=== PATIENT | female | born 1960 | race Caucasian/White ===

== ENCOUNTER 2023-05-17 23:17 | Inpatient (IN) | payer MEDICARE, OTHER, SELFPAY ==
--- NOTE | ~2023-05-17 | US_ITS ---
EXAMINATION: US VENOUS ULTRASOUND WITH DOPPLER LOWER EXTREMITY, BILATERAL CLINICAL INFORMATION: Swelling, question DVT COMPARISON: None available. TECHNIQUE: Ultrasound of the deep veins is performed from the hip to the calf with compression sonography and color and pulse Doppler assessment. Spectral analysis with color-flow imaging is performed. FINDINGS: RIGHT: There is normal venous compression and respiratory variation and augmented flow. The visualized common femoral vein, superficial femoral vein, profunda femoral vein, popliteal vein, and the trifurcation region shows no evidence of deep venous thrombosis. There is no significant popliteal fossa cyst. LEFT: There is normal venous compression and respiratory variation and augmented flow. The visualized common femoral vein, superficial femoral vein, profunda femoral vein, popliteal vein, and the trifurcation region shows no evidence of deep venous thrombosis. There is no significant popliteal fossa cyst. If the patient's symptoms persist, followup ultrasound in 5 days 7 days might be of value to exclude proximal propagation from a non-visualized calf vein. US/US venous duplex LE BI IMPRESSION: No DVT demonstrated in the bilateral lower extremities.
--- NOTE | ~2023-05-17 | CT_ITS ---
EXAMINATION: CT CHEST, ABDOMEN AND PELVIS WITH CONTRAST CLINICAL INFORMATION: Fever of unknown origin COMPARISON: None TECHNIQUE: Multidetector volumetric imaging was performed through the chest, abdomen and pelvis following the administration of oral and 85 mL of Omnipaque 350 intravenous contrast. Delayed imaging through the abdomen/pelvis was also performed. Sagittal and coronal reformatted images were obtained on the technologist's workstation. Axial MIP volume rendering provided. This CT examination was performed using dose optimization techniques as appropriate, variously including the following: *Automated exposure control *Adjustment of mA and/or kV according to patient size (this includes techniques or standardized protocols for targeted exams where dose is matched to indication/reason for exam; i.e. extremities or head) *Use of iterative reconstruction technique DLP: 2248 mGy-cm FINDINGS: CHEST: Lungs: Limited detailed evaluation due to respiratory motion artifact. Mild dependent symmetric opacities bilaterally favor atelectasis. No additional consolidation is seen. Mediastinum: The visualized thyroid gland is unremarkable. There are subcentimeter mediastinal lymph nodes within the range of normal variation. Borderline cardiomegaly without pericardial effusion. Aorta appears unremarkable. Pleura: No pneumothorax or pleural effusion. Chest Wall/Axilla: Unremarkable. ABDOMEN/PELVIS: Suboptimal assessment in some regions due to motion artifact. Liver, Gallbladder, Biliary Tree: The liver is normal in size, shape, and attenuation. No focal hepatic lesion or biliary ductal dilatation is present. The gallbladder is unremarkable with no evidence of radiopaque gallstones, gallbladder wall thickening, or pericholecystic inflammatory changes. Pancreas: Unremarkable. Spleen: Unremarkable. Adrenal Glands: Unremarkable. Kidneys and Ureters: Bilateral nephrograms are symmetric. There are prominent fluid density structures in the bilateral renal sinuses, most consistent with renal sinus cysts as these do not enhance on delayed imaging, and the renal pelvises are nondilated; no follow-up recommended. No ureteral calculus is seen. Bladder: Nearly empty and not well evaluated. Gastrointestinal Tract: There is sigmoid colon diverticulosis without diverticulitis. The small and large bowel are otherwise unremarkable without evidence of obstruction or pericolonic inflammatory change. The appendix is unremarkable. No free fluid or free air is seen. Abdominal Wall: No hernia is demonstrated. Lymphovascular Structures: Lymph nodes: Normal. Vascular: There is a partially calcified splenic artery aneurysm which may measure up to up to 2.7 cm, though this is difficult to accurately measure due to motion artifact. Pelvic Viscera: Unremarkable. OSSEOUS STRUCTURES: Unremarkable. CT/CT abdomen pelvis w IV con IMPRESSION: 1. No acute findings identified in the chest, abdomen, or pelvis. Of note, there is suboptimal assessment in some regions due to motion artifact. 2. Prominent fluid density structures in the bilateral renal sinuses, most consistent with renal sinus cysts. 3. Partially calcified splenic artery aneurysm which may measure up to 2.7 cm, though this is difficult to accurately measure due to motion artifact.
--- NOTE | ~2023-05-17 | CT_ITS ---
EXAMINATION: CT HEAD WITHOUT CONTRAST CLINICAL INFORMATION: Change in mental status COMPARISON: None available. TECHNIQUE: Contiguous axial imaging was performed from the skull base to vertex without intravenous administration of contrast. This CT examination was performed using dose optimization techniques as appropriate, variously including the following: *Automated exposure control *Adjustment of mA and/or kV according to patient size (this includes techniques or standardized protocols for targeted exams where dose is matched to indication/reason for exam; i.e. extremities or head) *Use of iterative reconstruction technique DLP: 576 mGy-cm FINDINGS: Limited evaluation some regions due to streak artifact from left cochlear implant. There is no evidence of acute intracranial hemorrhage or territorial infarction. No abnormal mass-effect or midline shift is seen. Burns to white matter differentiation is well preserved. No extra-axial fluid collections are identified. The ventricles are normal in size. There is mild periventricular white matter hypoattenuation consistent with chronic small vessel ischemic disease. Mild volume loss is noted. No acute fracture is seen. There is a mottled lucent appearance of the calvarium. Partially opacified right mastoid air cells. The visualized portions of the paranasal sinuses are well-aerated. CT/CT head/brain wo IV con IMPRESSION: 1. No acute intracranial pathology. Chronic small vessel ischemic disease and volume loss. 2. Mottled lucent appearance of the calvarium, of uncertain chronicity without prior studies for comparison. Considerations would include sequelae of multiple myeloma or metastases in the proper clinical setting.
--- NOTE | ~2023-05-17 | XR_ITS ---
EXAMINATION: XR CHEST CLINICAL INFORMATION: Weakness COMPARISON: None available. TECHNIQUE: Frontal view of the chest was obtained. FINDINGS: Mild bibasilar atelectasis, left side greater than right. No consolidation, pneumothorax or pleural effusion. Pleural parenchymal scarring is present at the lung apices. Cardiac and mediastinal contours are normal. Pulmonary vasculature is . No acute osseous findings. XR/XR chest 1V IMPRESSION: Mild bibasilar atelectasis. No acute pulmonary findings.
[2023-05-17 23:26] VITALS: BP 126/43; PULSE 79; RESP 17; TEMP 39.1; O2SAT 94
[2023-05-17 23:39] VITALS: BP 128/70; PULSE 85; O2SAT 96; BMI 29.8
--- NOTE | 2023-05-17 23:43 | ECG_ITS ---
Test Reason : AMS Blood Pressure : / mmHG Vent. Rate : 075 BPM Atrial Rate : 075 BPM P-R Int : 120 ms QRS Dur : 074 ms QT Int : 362 ms P-R-T Axes : 003 045 024 degrees QTc Int : 404 ms Normal sinus rhythm Nonspecific T wave abnormality Abnormal ECG No previous ECGs available Referred By: Martha Bishop Electronically Signed By:QUEENIE JOHNSON MD
[2023-05-18] VITALS (9 sets, daily range): BP systolic 94–129; BP diastolic 40–60; PULSE 60–103; RESP 16–18; TEMP 36–38.3; O2SAT 93–97; BMI 30.8
[2023-05-18 00:05] LABS: MANUAL DIFF FLAG NO
[2023-05-18 00:08] LABS: Basophils Percent Auto 0.4 % (0-2); Eosinophils Percent Auto 0.1 % (0-4); Hematocrit 41.8 % (37.0-47.0); Hemoglobin 14.7 g/dl (12.0-16.0); Imm Gran Abs Auto 0.01 X10*3/uL (0.00-0.03); Imm Gran Pct Auto 0.1 % (0.0-0.4); Lymphocytes Absolute Auto 0.9 X10*3/uL (1.2-4.9); Lymphocytes Percent Auto 11.6 % (20-40); Mean Corpuscular HGB Conc 35.2 g/dl (31.0-35.0); Mean Corpuscular Hemoglobin 32.4 pg (27.0-33.0); Mean Corpuscular Volume 92.1 fL (80.0-98.0); Mean Platelet Volume 10.1 fL (9.4-12.3); Monocytes Absolute Auto 0.8 X10*3/uL (0.1-1.2); Monocytes Percent Auto 10.2 % (2-11); Neutrophils Absolute Auto 5.8 x10*3/uL (2.0-8.3); Neutrophils Percent Auto 77.6 % (45-73); Platelet Count 174 X10*3/uL (160-400); Red Blood Count 4.54 X10*6/uL (4.20-5.50); Red Cell Distribution Width 13.1 % (11.0-16.0); White Blood Count 7.4 X10*3/uL (4.8-10.8)
[2023-05-18] MEDS: Acetaminophen 325 MG TABLET 650 MG PO (00:08)
[2023-05-18] MEDS: cefTRIAXone sodium 1 GM in 0.9 % Sodium Chloride 50 ML IV (00:08)
[2023-05-18] MEDS: 0.9 % Sodium Chloride 1,000 ML 999 ML IVCONT (00:08)
--- NOTE | 2023-05-18 00:09 | ED.WEAKNESS ---
HPI - Weakness General Chief complaint: Altered Mental Status Stated complaint: fever Time Seen by Provider: 05/17/23 23:26 Source: patient and family Mode of arrival: EMS Limitations: other (confusion) History of Present Illness HPI Narrative: 63 yo female with PMH of TBI, hearing loss, cognitive impairment, melanoma in remission but did have brain surgery because of it remotely she has memory issues at baseline but last two days has seemed foggy and weak with increased urination and very weak starting today. was worried she had a UTI or something. He basically had to help her get to and from the bathroom. She is normally alert and oriented but confused today and now only oriented to person. Patient is having a hard time describing what is happening to her states she has been sick for 2 weeks and her and his girlfriend help her (the girlfriend is in fact the patient's sister who is RN who has been trying to help) was recently told she has two scaly non infected patches on R upper thigh that she could have lupus but derm is not sure MD Complaint: generalized weakness Onset (ago): day(s) (2) Duration: progressively worsening Location: generalized Migration: none Severity: moderate Relieving factors: rest Exacerbating factors: movement and exertion Context: recent illness Associated symptoms: loss of appetite Related Data Allergies Allergy/AdvReac Type Severity Reaction Status Date / Time No Known Allergies Allergy Verified 05/17/23 23:42 Review of Systems Review of Systems: ROS unable to be obtained due to altered mental status PMFSH Past Medical History Source: obtained from family Medical History Hyperlipidemia Cognitive impairment Melanoma Hearing loss TBI (traumatic brain injury) Social History Social History (Updated 05/18/23 @ 00:10 by Martha Bishop DO) Alcohol intake: never Patient Tobacco Use Status: Never used Tobacco Smoked in Last 30 Days: No Use of substances other than those prescribed or required for medical reasons: No Advance Directives: No Advance Directives Information Provided: Yes Physical Exam Vital Signs: Vital Signs: Last Vital Signs Temp 97.9 F 05/18/23 02:43 Pulse 67 05/18/23 02:43 Resp 18 05/18/23 02:43 BP 116/50 L 05/18/23 02:43 Pulse Ox 97 05/18/23 02:43 O2 Del Method Room Air 05/18/23 02:43 BMI result Body Mass Index 29.8 Appearance: Alert. Oriented X1. Mild acute distress. Eyes: Pupils equal, round and reactive to light. ENT: Pharynx mildly dry MM, atraumatic Neck: Normal inspection. Neck supple. CVS: Normal heart rate and rhythm. Pulses normal. Respiratory: No respiratory distress. Breath sounds normal. Abdomen: Soft and nontender. Skin: Skin warm and dry. pale skin color. Normal skin turgor. Extremities: No lower extremity edema. No calf ttp Neuro: Oriented X 1. No motor deficit. No sensory deficit. Course Course Course Narrative: patient is not consentable after discussing possible LP with she will need significant sedation to get this done - at this time not equipped to do this at 345am in morning single coverage, will cover with abx and acyclovir and admit for IR spinal tap is aware Medications Administered Discontinued Medications Generic Name Dose Route Start Last Admin Trade Name Freq PRN Reason Stop Dose Admin Acetaminophen 650 mg 05/17/23 23:43 05/18/23 00:08 Acetaminophen 325 Mg Tablet PO 05/17/23 23:44 650 mg ONCE ONE Administration Sodium Chloride 1,000 mls @ 999 mls/hr 05/17/23 23:45 05/18/23 01:45 Ns IVCONT 05/18/23 00:45 Infused .Q1H1M PEDRITO Infusion Ceftriaxone Sodium 1 gm/ 50 mls @ 100 mls/hr 05/17/23 23:43 05/18/23 00:59 Sodium Chloride IV 05/18/23 00:12 Infused ONCE ONE Infusion Iohexol 85 ml 05/18/23 02:42 05/18/23 02:42 Iohexol 350 Mg/Ml 100 Ml Infus..Btl IV 05/18/23 02:43 85 ml ONCE ONE Administration Medical Decision Making Medical Decision Making MDM Narrative: 63 yo female with PMH of TBI, hearing loss, cognitive impairment, melanoma in remission but did have brain surgery because of it remotely here with c/o weakness, increased confusion and urinary symptoms found to have temp of 102 on ED arrival - at this time labs, cultures, lactic acid, CXR and UA ordered along with IVF, tylenol and empiric ceftriaxone. She has not fallen has no focal deficits or signs of head trauma to suggest ICH. Differential Diagnosis Differential Diagnoses: The differential diagnosis associated with the presentation includes viral syndrome, UTI, pneumonia Admission/Observation Consideration of admission/observation: Escalation of care including admission/observation considered will admit Consult Healthcare Provider Management of the patient was discussed with: Hospitalist (will admit) Lab Data [facility] Lab Attestation statement: I reviewed the patient's lab results. 05/17/23 23:59 05/17/23 23:59 Labs: Lab Results 05/17/23 05/18/23 05/18/23 Range/Units 23:59 00:06 00:10 WBC 7.4 (4.8-10.8) X10*3/uL RBC 4.54 (4.20-5.50) X10*6/uL Hgb 14.7 (12.0-16.0) g/dl Hct 41.8 (37.0-47.0) % MCV 92.1 (80.0-98.0) fL MCH 32.4 (27.0-33.0) pg MCHC 35.2 H (31.0-35.0) g/dl RDW 13.1 (11.0-16.0) % Plt Count 174 (160-400) X10*3/uL MPV 10.1 (9.4-12.3) fL Immature Gran % (Auto) 0.1 (0.0-0.4) % Neut % (Auto) 77.6 H (45-73) % Lymph % (Auto) 11.6 L (20-40) % [place] % (Auto) 10.2 (2-11) % Eos % (Auto) 0.1 (0-4) % Baso % (Auto) 0.4 (0-2) % Lymph # (Auto) 0.9 L (1.2-4.9) X10*3/uL [place] # (Auto) 0.8 (0.1-1.2) X10*3/uL Eos # (Auto) 0.0 (0.0-0.4) X10*3/uL Baso # (Auto) 0.0 (0.0-0.2) X10*3/uL Abs Immat Gran (auto) 0.01 (0.00-0.03) X10*3/uL Absolute Neuts (auto) 5.8 (2.0-8.3) x10*3/uL Absolute Nucleated RBC 0.000 (0.0-0.012) X10*3/uL Nucleated RBC % (auto) 0.0 (0.0-0.2) /100WBC VBG pH 7.41 (7.32-7.43) VBG pCO2 40 mmHg VBG pO2 47 mmHg VBG HCO3 26 (22-26) mmol/L VBG O2 Saturation 75.0 % VBG Base Excess 1.5 mmol/L Sodium 140 (135-145) mmol/L Potassium 4.0 (3.3-5.1) mmol/L Chloride 110 H (96-108) mmol/L Carbon Dioxide 23 (22-29) mmol/L Anion Gap 11 L (12-20) BUN 16 (9-16) mg/dL Creatinine 1.14 (0.5-1.4) mg/dL Estim Creat Clear Calc 57.4 Estimated GFR 48 Random Glucose 113 (60-115) mg/dL Lactic Acid 1.3 (0.5-2.0) mmol/L Calcium 9.6 (8.4-10.2) mg/dL Magnesium 2.1 (1.6-2.6) mg/dL Total Bilirubin 0.6 (0.0-1.0) mg/dL Direct Bilirubin 0.2 (0.0-0.5) mg/dL AST 31 (5-31) U/L ALT 34 H (0-31) U/L Alkaline Phosphatase 59 (39-117) U/L Troponin I High Sens < 2.7 (<3.5-17.0) ng/L Total Protein 7.5 (6.5-8.0) g/dL Albumin 4.3 (3.5-5.0) g/dL Lipase 30 (8-78) U/L Procalcitonin 0.08 ng/mL TSH 0.86 (0.32-4.0) uIU/mL Urine Color Urine Appearance Urine pH (5.0-9.0) Ur Specific [place] (1.005-1.025) Urine Protein (Neg-Trace) mg/dL Urine Glucose (UA) (Negative) mg/dL Urine Ketones (Negative) mg/dL Urine Blood (Negative) Urine Nitrite (Negative) Ur Leukocyte Esterase (Negative) COVID-19 (JUAN) Negative (Negative) COVID-19 Clin Com See Note Influenza Type A (MISA) Negative (Negative) Influenza Type B (MISA) Negative (Negative) Influenza A & B Note See Note 05/18/23 Range/Units 01:39 WBC (4.8-10.8) X10*3/uL RBC (4.20-5.50) X10*6/uL Hgb (12.0-16.0) g/dl Hct (37.0-47.0) % MCV (80.0-98.0) fL MCH (27.0-33.0) pg MCHC (31.0-35.0) g/dl RDW (11.0-16.0) % Plt Count (160-400) X10*3/uL MPV (9.4-12.3) fL Immature Gran % (Auto) (0.0-0.4) % Neut % (Auto) (45-73) % Lymph % (Auto) (20-40) % [place] % (Auto) (2-11) % Eos % (Auto) (0-4) % Baso % (Auto) (0-2) % Lymph # (Auto) (1.2-4.9) X10*3/uL [place] # (Auto) (0.1-1.2) X10*3/uL Eos # (Auto) (0.0-0.4) X10*3/uL Baso # (Auto) (0.0-0.2) X10*3/uL Abs Immat Gran (auto) (0.00-0.03) X10*3/uL Absolute Neuts (auto) (2.0-8.3) x10*3/uL Absolute Nucleated RBC (0.0-0.012) X10*3/uL Nucleated RBC % (auto) (0.0-0.2) /100WBC VBG pH (7.32-7.43) VBG pCO2 mmHg VBG pO2 mmHg VBG HCO3 (22-26) mmol/L VBG O2 Saturation % VBG Base Excess mmol/L Sodium (135-145) mmol/L Potassium (3.3-5.1) mmol/L Chloride (96-108) mmol/L Carbon Dioxide (22-29) mmol/L Anion Gap (12-20) BUN (9-16) mg/dL Creatinine (0.5-1.4) mg/dL Estim Creat Clear Calc Estimated GFR Random Glucose (60-115) mg/dL Lactic Acid (0.5-2.0) mmol/L Calcium (8.4-10.2) mg/dL Magnesium (1.6-2.6) mg/dL Total Bilirubin (0.0-1.0) mg/dL Direct Bilirubin (0.0-0.5) mg/dL AST (5-31) U/L ALT (0-31) U/L Alkaline Phosphatase (39-117) U/L Troponin I High Sens (<3.5-17.0) ng/L Total Protein (6.5-8.0) g/dL Albumin (3.5-5.0) g/dL Lipase (8-78) U/L Procalcitonin ng/mL TSH (0.32-4.0) uIU/mL Urine Color Yellow Urine Appearance Clear Urine pH 5.5 (5.0-9.0) Ur Specific [place] >= 1.030 H (1.005-1.025) Urine Protein Negative (Neg-Trace) mg/dL Urine Glucose (UA) Negative (Negative) mg/dL Urine Ketones Trace (Negative) mg/dL Urine Blood Negative (Negative) Urine Nitrite Negative (Negative) Ur Leukocyte Esterase Negative (Negative) COVID-19 (JUAN) (Negative) COVID-19 Clin Com Influenza Type A (MISA) (Negative) Influenza Type B (MISA) (Negative) Influenza A & B Note Independent Interpretation I performed an independent interpretation of an: EKG and Plain X-Ray (no pneumonia) Interpretation: Rate: 75 Rhythm: NSR Philipp: normal Normal P waves. Normal VANE. Normal QRS complex. ST T wave : no KRISTAL, nonspecific lateral leads qTC: 404 prior studies: no acute ischemia The study has been interpreted contemporaneously by me. . Radiology Impression Discussion of test interpretation with radiology: I have reviewed the radiologist's reading. Independent Historian Clinical information obtained from an independent historian. History obtained from or confirmed by: Spouse Discharge Plan Discharge Clinical Impression: Acute febrile illness Altered mental status Qualifiers: Altered mental status type: delirium Qualified Code(s): R41.0 - Disorientation, unspecified Patient Disposition: Admitted As Inpatient
[2023-05-18 00:17] LABS: VBG Base Excess 1.5 mmol/L; VBG HCO3 26 mmol/L (22-26); VBG pCO2 40 mmHg; VBG pH 7.41 (7.32-7.43); VBG pO2 47 mmHg
[2023-05-18 00:17] LABS: Venous Blood Gas Refer to POC result
[2023-05-18 00:19] LABS: Lactic Acid 1.3 mmol/L (0.5-2.0)
[2023-05-18 00:28] LABS: Troponin-I High Sensitivity < 2.7 ng/L (<3.5-17.0)
[2023-05-18 00:36] LABS: Alanine Aminotransferase 34 U/L (0-31); Albumin Level 4.3 g/dL (3.5-5.0); Alkaline Phosphatase 59 U/L (39-117); Anion Gap 11 (12-20); Aspartate Amino Transferase 31 U/L (5-31); Bilirubin Direct 0.2 mg/dL (0.0-0.5); Bilirubin Total 0.6 mg/dL (0.0-1.0); Blood Urea Nitrogen 16 mg/dL (9-16); Calcium 9.6 mg/dL (8.4-10.2); Carbon Dioxide 23 mmol/L (22-29); Chloride 110 mmol/L (96-108); Creatinine Clr Calc Pharmacy 57.4; Estimated Glomerular Filt Rate 48; Glucose Random 113 mg/dL (60-115); Lipase 30 U/L (8-78); Magnesium 2.1 mg/dL (1.6-2.6); Sodium 140 mmol/L (135-145); Total Protein 7.5 g/dL (6.5-8.0)
[2023-05-18 00:39] LABS: COVID-19 Test Negative (Negative); IDNOW Serial# 08D9AD1C; IDNOW Serial# 9DB6401D; Influenza A Negative (Negative); Influenza B2 Negative (Negative)
[2023-05-18 00:42] LABS: TSH reflex Free T4 0.86 uIU/mL (0.32-4.0)
[2023-05-18 00:45] LABS: Procalcitonin 0.08 ng/mL
--- OUTSIDE RECORDS SUMMARY | 2023-05-18 00:58 | XMS_ITS | Continuity of Care Document ---
Author Name Unknown Organization [facility] Address [address] [place] [address]- Care Team Providers Care Instrument Specialist Name Role Phone Sandra Hernandez NP Primary Care Physician [id number] Date(s): 03/30/22 - 07/28/22 [facility] [address] [place] [id number]- Attending Physician: Sandra Hernandez NP Allergies, Adverse Reactions, Alerts No Known Medication Allergies Immunizations Given and Recorded Vaccine Date Status Refusal Reason SARS-CoV-2 (COVID-19) mRNA BNT-162b2 vac 03/19/21 Recorded SARS-CoV-2 (COVID-19) mRNA BNT-162b2 vac 08/09/20 Recorded SARS-CoV-2 (COVID-19) mRNA BNT-162b2 vac 07/19/20 Recorded influenza virus vaccine, inactivated 01/05/21 Jarod rded influenza virus vaccine, inactivated 12/25/19 Jarod rded influenza virus vaccine, inactivated 01/04/19 Jarod rded influenza virus vaccine, inactivated 01/30/18 Jarod rded Flu Vaccine 01/29/15 Recorded tetanus/diphtheria/pertussis, acel(Tdap) 07/08/11 Recorded Medications Amlactin 12% lotion Topically, 2 times a day, 0 Refills, Maintenance, 12/28/21 10:08:00 EDT, Partial fill upon patient request if the prescription is for a schedule II opioid drug. Start Date: 12/28/21 Status: Ordered Centrum Adults By Mouth, Daily, 0 Refills, Maintenance, 12/28/21 10:07:00 EDT, Partial fill upon patient request if the prescription is for a schedule II opioid drug. Start Date: 12/28/21 Status: Ordered Prevagen = 50 mcg, By Mouth, Daily, 0 Refills, Maintenance, 12/28/21 10:07:00 EDT, Partial fill upon patientrequest if the prescription is for a schedule II opioid drug. Start Date: 12/28/21 Status: Ordered rosuvastatin 10 mg oral tablet 1 tablet, By Mouth, Daily, # 90 tablet, 1 Refills, Maintenance, 06/14/22 18:24:00 EST, [id number], 174, cm, 12/28/21 10:02:00 EDT, Height Start Date: 06/14/22 Status: Ordered Vitamin D3 1000 intl units oral capsule 1 capsule = 25 mcg, By Mouth, Daily, 0 Refills, Maintenance, 12/28/21 10:07:00 EDT, Partial fill upon patient request if the prescription is for a schedule II opioid drug. Start Date: 12/28/21 Status: Ordered Problem List Condition Confirmation Course Effective Dates Status H ealth Status Informant Macular degeneration of right eye Confirmed Active History of malignant melanoma Confirmed Active History of traumatic brain injury Confirmed Active Hyperlipidemia Confirmed Active Social History Social History Type Response Smoking Status Never (less than 100 in lifetime) entered on: 12/28/21 Sex Patient Care team information Care Team Personnel Name: Sandra Hernandez NP Position: S PCO Associate Professional Member Role: PCP Address: Address: [address] [place] [address] [place] [address]- [place] Care Team Related Persons Name: STEVIE GEORGE Address: home [address] [place] [address] Name: REAGAN BATISTA Address: [place] [address]
--- OUTSIDE RECORDS SUMMARY | 2023-05-18 00:59 | XMS_ITS | Continuity of Care Document ---
Author Name Unknown Organization [facility] Address [address] [place] [id number]- Care Team Providers Care Hand Pleater Name Role Phone Sandra Hernandez NP Primary Care Physician Encounter [facility] Date(s): 12/15/20 - [facility] [address] [place] [address]- Encounter Diagnosis Hyperlipidemia(Discharge Diagnosis) - 12/15/20 Macular degeneration of right eye(Discharge Diagnosis) - 12/15/20 History of traumatic brain injury(Discharge Diagnosis) - 12/15/20 Attending Physician: Sandra Hernandez NP Allergies, Adverse Reactions, Alerts No Known Medication Allergies Immunizations Given and Recorded Vaccine Date Status Refusal Reason SARS-CoV-2 (COVID-19) mRNA BNT-162b2 vac 08/09/20 Recorded SARS-CoV-2 (COVID-19) mRNA BNT-162b2 vac 07/19/20 Recorded influenza virus vaccine, inactivated 12/25/19 Jarod rded influenza virus vaccine, inactivated 01/04/19 Jarod rded influenza virus vaccine, inactivated 01/30/18 Jarod rded Flu Vaccine 01/29/15 Recorded tetanus/diphtheria/pertussis, acel(Tdap) 07/08/11 Recorded Medications rosuvastatin 10 mg oral tablet 1 tablet = 10 mg, By Mouth, Daily, # 30 tablet, 0 Refills, Maintenance, 12/15/20 10:14:00 EDT, Tablet, Partial fill upon patient request if the prescription is for a schedule II opioid drug. Start Date: 12/15/20 Status: Ordered Problem List Condition Effective Dates Status Health Status Inform ant Macular degeneration of righ t eye(Confirmed) Active History of traumatic brain injury(Confirmed) Active Hyperlipidemia(Confirmed) Active Diagnosis Diagnosis Type Effective Dates Health Status Clinical Service Informant Hyperlipidemia Discharge Diagnosis 12/15/20 Macular degeneration of right eye Discharge Diagnosis 12/15/20 History of traumatic brain injury Discharge Diagnosis 12/15/20 Vital Signs Most recent to oldest [Reference Range]: 1 Height 174 cm (12/15/20 10:05 AM) Weight 83.1 kg (12/15/20 10:05 AM) Oxygen Saturation [94-100 %] 98 % (12/15/20 10:05 AM) Pulse Rate [55-90 bpm] 74 bpm (12/15/20 10:05 AM) Body Mass Index [18.5-24.99] 27.45 *H* (12/15/20 10:05 AM) Blood Pressure [90-138/55-84 mm Hg] 124/ 84mm Hg (12/15/20 10:05 AM) Respiratory Rate [16-30 br/min] 16 br/mi n (12/15/20 10:05 AM) Temperature [96.8-100.4 DegF] 98.6 DegF (12/15/20 10:05 AM) Mode of Delivery (Oxygen) Room air (12/15/20 10:05 AM) Blood pressure sites Arm, right (12/15/20 10:05 AM) Temperature Route Temporal (12/15/20 10:05 AM)
--- OUTSIDE RECORDS SUMMARY | 2023-05-18 00:59 | XMS_ITS | Continuity of Care Document ---
Author Name Unknown Organization [facility] Address [address] [place] [address]- Care Team Providers Care Roller Skate Repairer Name Role Phone David CLARKE, Sandra Wise Primary Care Physician Encounter [facility] Date(s): 12/10/20 - [facility]09/[facility] [address] [place] [address]- [place] Allergies, Adverse Reactions, Alerts No Known Medication Allergies Immunizations Given and Recorded Vaccine Date Status Refusal Reason influenza virus vaccine, inactivated 01/05/21 Jarod rded influenza virus vaccine, inactivated 12/25/19 Jarod rded influenza virus vaccine, inactivated 01/04/19 Jarod rded influenza virus vaccine, inactivated 01/30/18 Jarod rded SARS-CoV-2 (COVID-19) mRNA BNT-162b2 vac 08/09/20 Recorded SARS-CoV-2 (COVID-19) mRNA BNT-162b2 vac 07/19/20 Recorded Flu Vaccine 01/29/15 Recorded tetanus/diphtheria/pertussis, acel(Tdap) 07/08/11 [...]
--- OUTSIDE RECORDS SUMMARY | 2023-05-18 00:59 | XMS_ITS | Continuity of Care Document ---
Author Name Unknown Organization [facility] Address [address] [phone]- Care Team Providers Care Pulmonary Specialist Name Role Phone Sandra Hernandez NP Primary Care Physician [phone] Encounter [facility] Date(s): 08/06/22 - 08/13/22 [facility] Adult Medicine [address] [place] [address]- Encounter Diagnosis COVID-19 virus infection(Discharge Diagnosis) - 08/06/22 Hyperlipidemia(Discharge Diagnosis) - 08/06/22 Hospital discharge follow-up(Discharge Diagnosis) - 08/06/22 Attending Physician: Sandra Hernandez NP Allergies, Adverse Reactions, Alerts No Known Medication Allergies Immunizations Given and Recorded Vaccine Date Status Refusal Reason influenza virus vaccine, inactivated 12/30/21 Jarod rded influenza virus vaccine, inactivated 01/05/21 Jarod rded influenza virus vaccine, inactivated 12/25/19 Jarod rded influenza virus vaccine, inactivated 01/04/19 Jarod rded influenza virus vaccine, inactivated 01/30/18 Jarod rded [id number] 12y+ bivalent booster vax 12/30/21 Recorded SARS-CoV-2 mRNA (qkvhegh-ppvu-griko) vax 08/07/21 Recorded SARS-CoV-2 (COVID-19) mRNA BNT-162b2 vac 03/19/21 Recorded [...] tablet, 1 Refills, Maintenance, 06/14/22 18:24:00 EST, [facility], 174, cm, 12/28/21 10:02:00 EDT, Height Start [...] brain injury Confirmed Active Hyperlipidemia Confirmed Active Diagnosis Diagnosis Type Effective Dates Health Status Clinical Service Informant COVID-19 virus infection Discharge Diagnosis 08/06/22 Hyperlipidemia Discharge Diagnosis 08/06/22 Hospital discharge follow-up Discharge Diagnosis 08/06/22 Vital Signs Most recent to oldest [Reference Range]: 1 Height 174 cm (08/06/22 12:35 PM) Weight 87.1 kg (08/06/22 12:35 PM) Oxygen Saturation [94-100 %] 97 % (08/06/22 12:35 PM) Pulse Rate [55-90 bpm] 78 bpm (08/06/22 12:35 PM) Body Mass Index [18.5-24.99 kg/m2] 28.77 kg/m2 *H* (08/06/22 12:35 PM) Blood Pressure [90-138/55-84 mm Hg] 118/ 74mm Hg (4/21/23 12:35 PM) Temperature [96.8-100.4 DegF] 97.6 DegF (08/06/22 12:35 PM) Mode of Delivery (Oxygen) Room air (08/06/22 12:35 PM) Blood pressure sites Arm, left (08/06/22 12:35 PM) Temperature Route Temporal (08/06/22 12:35 PM) Weight Obtained Via Standing scale (08/06/22 12:35 PM) Social History Social History Type Response Smoking Status Never (less than 100 in lifetime) entered on: 12/28/21 Sex Note * Judy Gonzáles: PERFORM, SIGN, VERIFY Event Display: Patient Education/Instruction Authored Date: [id number] [facility] *BMP Quab Adlt Med Bltn Clinical Summary Name KIMBERLY GEORGE Age 62 Years 1960 PCP David CLARKE, Sandra Wise PCP Visit Date 08/06/2022 12:30:00 Additional Instructions: Scheduled Appointments?? Future Appointments ?No Future Appointments Scheduled Follow-Up Instructions ?? Diagnosis Encounter for follow-up examination after completed treatment for conditions other than malignant neoplasm; Hyperlipidemia, unspecified; COVID-19 Medications: Please continue your medications until treatment is completed or stopped by your provider. Discuss any questions related to medications with your provider. Medications to Continue with No Changes These medications were not printed or sent to your pharmacy Ammonium Lactate 12% (Amlactin 12% lotion) Topically twice a day. Next Dose: Cholecalciferol (Prevagen) 50 Microgram Oral Daily. Next Dose: Cholecalciferol (Vitamin D3 1000 intl units oral capsule) 1 capsule Oral Daily. Next Dose: Multivitamin With Minerals (Centrum Adults) Oral Daily. Next Dose: Rosuvastatin (rosuvastatin 10 mg oral tablet) 1 tab(s) Oral Daily. Refills: 1. Next Dose: Allergy Info:?? No Known Medication Allergies Medications Given This Visit Future Orders ?Lipid Panel? Order Date:08/06/22?- Complete on or after?08/06/22 ?Comprehensive Metabolic Panel? Order Date:08/06/22?- Complete on or after?08/06/22 Vital Signs Height 174 cm Weight 87.1 kg BMI 28.77 kg/m2 Blood Pressure 118 mm Hg/74 mm Hg Temperature 97.6 DegF Pulse Rate 78 bpm Respiratory Rate 02 Sat Mode of Delivery 97 %/Room air You can now view a summary of your hospital visit from the comfort of your home through a free online portal called [employer]. [employer] is a website that allows you to securely view your medical information including discharge summary, medications and follow-up visits. ??You can alsosend a secure electronic message to your doctor???s office to request appointments, renew medications or just ask a question. You can enroll at [email or web address] or register during your next office visit. Disclaimer:?? The information provided is of a general nature and is intended to be used in conjunction with the recommendations and advice of your health care practitioner. ??Every effort has been made to ensure that the information provided is accurate and complete at the time it is provided to you however, as your needs change, or, as new ??information becomes available, different or additional instructions may be required. If you have questions, please consult with your primary care provider or pharmacist, as appropriate. ??This information is not intended to serve as substitution for assessment and evaluation by a qualified health care provider. If you do not have a primary care provider, you may find a [facility] provider by calling [facility] [employer] at [phone]. For information about the plan of care including goals and instructions for your diagnosis, please see the patient education orders section of this document. Patient Education Materials?? The content of this educational material or handout may have been modified, supplemented, or adapted from its original content and format to support your individualized medical care. Patient Care team information Care Team Personnel Name: Sandra Hernandez NP Position: S PCO Associate Professional Member Role: PCP Address: Address: [address] [place] [address]- Care Team Related Persons Name: STEVIE GEORGE Address: home [address] [place] [address] Name: REAGAN BATISTA Address: [place] [address]
--- OUTSIDE RECORDS SUMMARY | 2023-05-18 00:59 | XMS_ITS | Continuity of Care Document ---
Author Name Unknown Organization [facility] Address [address] [place] [address]- Care Team Providers Care Usability Architect Name Role Phone David CLARKE, Sandra Wise Primary Care Physician Encounter 06/24/22 - 07/01/22 [facility] [address], [address] [place] [address]- Attending Physician: Sandra Hernandez NP Admitting Physician: Sandra Hernandez NP Referring Physician: Sandra Hernandez NP Allergies, Adverse Reactions, [...] Refills, Maintenance, 06/14/22 18:24:00 EST, [facility], 174, cm, 12/28/21 10:02:00 EDT, Height Start [...] brain injury Confirmed Active Hyperlipidemia Confirmed Active Results Radiology Reports * Exam Date Time Procedure Performing Provider Status 06/24/22 9:20 AM MM Digital Mammo Unilat Right Leanne Coronado; Yasmin (Verified) Notes: (MM Digital Mammo Unilat Right) Reason For Exam: Abnormal mammogram;Abnormal Mammogram RESULT: MM Digital Mammo Unilat Right PROCEDURE: MM Digital Mammo Unilat Right INDICATION: Microcalcifications on screening mammography. COMPARISON: 06/14/2022 mammogram and dating back to 11/03/2018. TECHNIQUE: Digital diagnostic RIGHT mammogram: Spot magnification compression CC and MLO views. Computer-aided detection (CAD) was not utilized in the interpretation of this study. FINDINGS: There is a 1.2 x 0.3 x 0.3 cm area of microcalcifications in the lateral posterior RIGHT breast, 9 to 10 cm from the nipple, slightly inferior to the posterior nipple line on the initial MLO view. Calcifications are pleomorphic and appear increased from earlier mammograms, although the prior mammograms may not have included as far posterior. IMPRESSION: RIGHT breast grouped microcalcifications. Recommend stereotactic/tomosynthesis guided biopsy. RECOMMENDATION: Digital tomosynthesis guided biopsy of the right breast BI-RADS: 4 (Suspicious) Lay letter mailed to patient Results and biopsy recommendation verbally discussed by myself with the patient at [facility] 06/24/2022 9:35 AM. Patient agrees to the biopsy recommendation, which is being scheduled. WSN: [id number] Ordering Physician: Sandra Hernandez Dictated By: Bailee Fernández MD Dictated Date/Time: 06/24/22 9:42 am Reviewed By: Bailee Fernández MD Signed By: Bailee Fernández MD Signed Date/Time: 06/24/22 9:42 am Transcribed By: LUIS ALBERTO Parts Control Clerk Date/Time: 06/24/22 9:37 am Birads: Social History Social History Type Response Smoking Status Never (less than 100 in lifetime) entered on: 12/28/21 Sex MG Breast - right Views * BHSPowerscribe , CIS S: TRANSCRIBE Bailee Fernández MD: VERIFY Event Display: Result: Authored Date: [id number] PROCEDURE: MM Digital Mammo Unilat Right INDICATION: Microcalcifications on screening mammography. COMPARISON: 06/14/2022 mammogram and dating back to 11/03/2018. TECHNIQUE: Digital diagnostic RIGHT mammogram: Spot magnification compression CC and MLO views. Computer-aided detection (CAD) was not utilized in the interpretation of this study. FINDINGS: There is a 1.2 x 0.3 x 0.3 cm area of microcalcifications in the lateral posterior RIGHT breast, 9 to 10 cm from the nipple, slightly inferior to the posterior nipple line on the initial MLO view. Calcifications are pleomorphic and appear increased from earlier mammograms, although the prior mammograms may not have included as far posterior. IMPRESSION: RIGHT breast grouped microcalcifications. Recommend stereotactic/tomosynthesis guided biopsy. RECOMMENDATION: Digital tomosynthesis guided biopsy of the right breast BI-RADS: 4 (Suspicious) Lay letter mailed to patient Results and biopsy recommendation verbally discussed by myself with the patient at [facility] 06/24/2022 9:35 AM. Patient agrees to the biopsy recommendation, which is being scheduled. WSN: [id number] Ordering Physician: Sandra Hernandez Dictated By: Bailee Fernández MD Dictated Date/Time: 06/24/22 9:42 am Reviewed By: Bailee Fernández MD Signed By: Bailee Fernández MD Signed Date/Time: 06/24/22 9:42 am Transcribed By: LUIS ALBERTO Parts Control Clerk Date/Time: 06/24/22 9:37 am Birads: Patient Care team information Care Team Personnel Name: Sandra Hernandez NP Position: [facility] PCO Associate Professional Member Role: PCP Address: Address: [address] [place] [address]- Care Team Related Persons Name: STEVIE GEORGE Name: REAGAN BATISTA Address: [place] [address]
--- OUTSIDE RECORDS SUMMARY | 2023-05-18 00:59 | XMS_ITS | Continuity of Care Document ---
Author Name Unknown Organization [facility] Address [address] [place] [address]- Care Team Providers Care Chief Vendor Quality Name Role Phone David CLARKE, Sandra Wise Primary Care Physician [phone] [facility] Date(s): 09/11/22 - 10/17/[address] [address] Attending Physician: Sandra Hernandez NP Admitting Physician: Sandra Hernandez NP Allergies, Adverse Reactions, Alerts No Known Medication Allergies Immunizations Given and Recorded Vaccine Date Status Refusal Reason influenza virus vaccine, inactivated 12/30/21 Jarod rded influenza virus vaccine, inactivated 01/05/21 Jarod rded influenza virus vaccine, inactivated 12/25/19 Jarod rded influenza virus vaccine, inactivated 01/04/19 Jarod rded influenza virus vaccine, inactivated 01/30/18 Jarod rded [id number] 12y+ bivalent booster vax 12/30/21 Recorded SARS-CoV-2 mRNA (eaqznfn-jhar-jhdqn) vax 08/07/21 Recorded SARS-CoV-2 (COVID-19) mRNA BNT-162b2 [...] opioid drug. Start Date: 12/28/21 Status: Ordered Estrace Vaginal Cream 0.1 mg/g See Instructions, 1 Gm Vaginally Daily at bedtime every night for 2 weeks and then 2-3 times a weekafter that, # 42.5 Gm, 0 Refills, Maintenance, 08/30/22 13:50:00 EDT, [facility]/pharmacy #1230, Partial fill upon patient request if the prescription is for... Start Date: 08/30/22 Status: Ordered Prevagen = 50 mcg, By Mouth, Daily, 0 Refills, Maintenance, 12/28/21 10:07:00 EDT, Partial fill upon patientrequest if the prescription is for a schedule II opioid drug. Start Date: 12/28/21 Status: Ordered rosuvastatin 10 mg oral tablet 1 tablet, By Mouth, Daily, # 90 tablet, 1 Refills, Maintenance, 06/14/22 18:24:00 EST, [facility] STORE 72411, 174, cm, 12/28/21 10:02:00 EDT, Height Start [...] Associate Professional Member Role: PCP Address: Address: [address] [place] [address] [place] [address]- Care Team Related Persons Name: STEVIE GEORGE Address: home [address] [place] [address] Name: REAGAN BATISTA Address: [place] [address]
--- OUTSIDE RECORDS SUMMARY | 2023-05-18 00:59 | XMS_ITS | Continuity of Care Document ---
Author Name Unknown [facility] Address [address] [phone]- Care Team Providers Care Attic Blower Name Role Phone Sandra Hernandez NP Primary Care Physician [phone] Encounter [facility] Date(s): 12/28/21 - [facility] [address] [place] [address]- [place] Encounter Diagnosis History of malignant melanoma(Discharge Diagnosis) - 12/28/21 History of traumatic brain injury(Discharge Diagnosis) - 12/28/21 Hyperlipidemia(Discharge Diagnosis) - 12/28/21 Macular degeneration of right eye(Discharge Diagnosis) - 12/28/21 Annual physical exam(Discharge Diagnosis) - 12/28/21 Attending Physician: Sandra Hernandez NP Allergies, Adverse [...] Daily, # 90 tablet, 1 Refills, Maintenance, 12/24/21 7:32:00 EDT, [facility], 174, cm, 06/15/21 10:11:00 EST, Height Start Date: 12/24/21 Status: Ordered Vitamin D3 1000 intl units oral capsule 1 capsule = 25 mcg, By Mouth, Daily, 0 Refills, Maintenance, 12/28/21 10:07:00 EDT, Partial fill upon patient request if the prescription is for a schedule II opioid drug. Start Date: 12/28/21 Status: Ordered Problem List Condition Effective Dates Status Health Status Inform ant Macular degeneration of righ t eye(Confirmed) Active History of malignant melanoma(Confirmed) Active History of traumatic brain injury(Confirmed) Active Hyperlipidemia(Confirmed) Active Diagnosis Diagnosis Type Effective Dates Health Status Clinical Service Informant History of malignant melanoma Discharge Diagnosis 12/28/21 History of traumatic brain injury Discharge Diagnosis 12/28/21 Hyperlipidemia Discharge Diagnosis 12/28/21 Macular degeneration of right eye Discharge Diagnosis 12/28/21 Annual physical exam Discharge Diagnosis 12/28/21 Vital Signs Most recent to oldest [Reference Range]: 1 Height 174 cm (12/28/21 10:02 AM) Weight 89.6 kg (12/28/21 10:02 AM) Oxygen Saturation [94-100 %] 97 % (12/28/21 10:02 AM) Pulse Rate [55-90 bpm] 77 bpm (12/28/21 10:02 AM) Body Mass Index [18.5-24.99] 29.59 *H* (12/28/21 10:02 AM) Blood Pressure [90-138/55-84 mm Hg] 118/ 74mm Hg (12/28/21 10:02 AM) Temperature [96.8-100.4 DegF] 97.6 DegF (12/28/21 10:02 AM) Mode of Delivery (Oxygen) Room air (12/28/21 10:02 AM) Blood pressure sites Arm, left (12/28/21 10:02 AM) Temperature Route Temporal (12/28/21 10:02 AM) Weight Obtained Via Standing scale (12/28/21 10:02 AM) Social History Social History Type Response Smoking Status Never (less than 100 in lifetime) entered on: 12/28/21 Sex Care Team Personnel Name: Sandra Hernandez NP Address: [address] [place] [id number]
--- OUTSIDE RECORDS SUMMARY | 2023-05-18 00:59 | XMS_ITS | Continuity of Care Document ---
Author Name Unknown Organization [facility] ter Address [address] [place] [address]- Care Team Providers Care Disk Recoater Name Role Phone Sandra Hernandez NP Primary Care Physician [phone] [place] [facility] Date(s): 06/24/22 - 08/13/[address] [address] Attending Physician: Sandra Hernandez NP Admitting Physician: Sandra Hernandez NP Referring Physician: Sandra Hernandez NP Allergies, Adverse Reactions, Alerts No Known Medication Allergies Immunizations Given and Recorded Vaccine Date Status Refusal Reason influenza virus vaccine, inactivated 12/30/21 Jarod rded influenza virus vaccine, inactivated 01/05/21 Jarod rded influenza virus vaccine, inactivated 12/25/19 Jraod rded influenza virus vaccine, inactivated 01/04/19 Jarod rded influenza virus vaccine, inactivated 01/30/18 Jarod rded [id number] 12y+ bivalent booster vax 12/30/21 Recorded SARS-CoV-2 mRNA (kvfkxsb-xhms-stqqt) vax 08/07/21 Recorded SARS-CoV-2 (COVID-19) mRNA BNT-162b2 [...] Refills, Maintenance, 06/14/22 18:24:00 EST, [facility], 174, cm, 12/28/21 10:02:00 EDT, Height Start [...] Care team information Care Team Personnel Name: Snadra Hernandez NP Position: S PCO Associate Professional Member Role: PCP Address: Address: [address] [place] [address]- Care Team Related Persons Name: STEVIE GEORGE Address: home [address] [place] [address] Name: REAGAN BATISTA Address: [place] [address]
--- OUTSIDE RECORDS SUMMARY | 2023-05-18 00:59 | XMS_ITS | Continuity of Care Document ---
Author Name Unknown Organization [facility] Address [address] [phone]- Care Team Providers Care Delinquency Counselor Name Role Phone David CLARKE, Sandra Wise Primary Care Physician Encounter [facility] Date(s): 12/10/21 - [facility]09[facility] [address] [phone]- [place] Allergies, Adverse Reactions, Alerts No Known [...] Refills, Maintenance, 12/24/21 7:32:00 EDT, [facility], 174, cm, 06/15/21 10:11:00 EST, Height Start [...] of traumatic brain injury(Confirmed) Active Hyperlipidemia(Confirmed) Active Social History Social History Type Response Smoking Status Never (less than 100 in lifetime) entered on: 12/28/21 Sex Care Team Personnel Name: Sandra Hernandez NP Address: [address] [place] [address]
--- OUTSIDE RECORDS SUMMARY | 2023-05-18 00:59 | XMS_ITS | Continuity of Care Document ---
Author Name Unknown Organization [facility] Adult De dicine Address [address] [place] [address]- Care Team Providers Care Sewing Machine Operator Zipper Name Role Phone David SUPERVISOR RICE MILLING, Sandra M Primary Care Physician [facility] Date(s): 11/24/20 - [facility] [address] [place] [address]- Attending Physician: Gabriel Aguiar MD Allergies, Adverse Reactions, Alerts No Known Medication [...] Daily, # 30 tablet, 0 Refills, Maintenance, 02/12/21 10:42:00 EDT, [facility], Partial fill upon patient request if the prescription is for a schedule II opioid drug., 174, cm, 12/15/20 10:05:00 EDT, Height Start Date: 02/12/21 Status: Ordered Problem List Condition Effective Dates Status Health Status Inform ant Macular degeneration of righ t eye(Confirmed) Active History of traumatic brain injury(Confirmed) Active Hyperlipidemia(Confirmed) Active
--- OUTSIDE RECORDS SUMMARY | 2023-05-18 00:59 | XMS_ITS | Continuity of Care Document ---
Author Name Unknown Organization [facility] Brittanie Chaidez [facility] Address [address] [place] [address]- Care Team Providers Care Security Incident Response Engineer Name Role Phone David CLARKE, Sandra Wise Primary Care Physician [phone] Encounter [facility] Date(s): 03/31/22 - 04/30/22 [facility] Brittanie Chaidez [facility] [address] [place] [address]- Allergies, Adverse Reactions, Alerts No Known Medication [...] Refills, Maintenance, 12/24/21 7:32:00 EDT, [facility], 174, cm, 06/15/21 10:11:00 EST, Height Start [...] Associate Professional Member Role: PCP Address: Address: [address] [place] [address] [place] [address]- Care Team Related Persons Name: STEVIE GEORGE Name: REAGAN BATISTA Address: [place] [address]
--- OUTSIDE RECORDS SUMMARY | 2023-05-18 00:59 | XMS_ITS | Continuity of Care Document ---
Author Name Unknown Organization [facility] Address [address] [place] [address] Care Team Providers Care Automatic Beading Lathe Operator Name Role Phone Frantz CLARKE, Soo Chan Primary Care Physicia n [place] [facility] [place] 01/07/23 - 02/06/[address] [address] Attending Physician: Salvatore Hodges Admitting Physician: AdmtrSalvatore Referring Physician: Admtr, Ar8 Allergies, Adverse Reactions, Alerts No Known Medication Allergies Immunizations Given and Recorded Vaccine Date Status Refusal Reason influenza virus vaccine, inactivated 12/30/21 Jarod rded influenza virus vaccine, inactivated 01/05/21 Jarod rded influenza virus vaccine, inactivated 12/25/19 Jarod rded influenza virus vaccine, inactivated 01/04/19 Jarod rded influenza virus vaccine, inactivated 01/30/18 Jarod rded [id number] 12y+ bivalent booster vax 12/30/21 Recorded SARS-CoV-2 mRNA (ptcznlx-upkd-nsiso) vax 08/07/21 Recorded SARS-CoV-2 (COVID-19) mRNA BNT-162b2 [...] Gm, 0 Refills, Maintenance, 08/30/22 13:50:00 EDT, [facility]/pharmacy #[id number], Partial fill upon patient request [...] Refills, Maintenance, 06/14/22 18:24:00 EST, [facility], 174, cm, 12/28/21 10:02:00 EDT, Height Start [...] Care team information Care Team Personnel Name: Frantz CLARKE, Soo Chan Position: S Outreach Member Role: PCP Address: Address: [address] [place] [address] [address] [place] [address]- Care Team Related Persons Name: STEVIE GEORGE Address: home [address] [place] [address] Name: REAGAN BATISTA Address: [place] [address]
--- OUTSIDE RECORDS SUMMARY | 2023-05-18 00:59 | XMS_ITS | Continuity of Care Document ---
Author Name Unknown Organization [facility] Address [address] [facility] [place] [address]- Care Team Providers Care Mechanical Equipment Sales Engineer Name Role Phone David CLARKE, Sandra Wise Primary Care Physician [phone] Encounter 06/12/21 - 06/19/21 [facility] [address], [facility] [address] [place] [address]- Attending Physician: Sandra Hernandez NP Admitting Physician: David CLARKE, Sandra Wise Referring Physician: Sandra Hernandez NP Allergies, Adverse [...] = 10 mg, By Mouth, Daily, # 90 tablet, 1 Refills, Maintenance, 06/15/21 10:34:00 EST, Tablet, [facility]/pharmacy #1230, Partial fill upon patient request if the prescription is for a schedule II opioid drug., 174, cm, 06/15/21 10:11:00 EST, Height Start Date: 06/15/21 Stop Date: 12/12/21 Status: Ordered Problem List Condition Effective Dates Status Health Status Inform ant Macular degeneration of righ t eye(Confirmed) Active History of malignant melanoma(Confirmed) Active History of traumatic brain injury(Confirmed) Active Hyperlipidemia(Confirmed) Active
--- OUTSIDE RECORDS SUMMARY | 2023-05-18 00:59 | XMS_ITS | Continuity of Care Document ---
Author Name Unknown Organization [facility] Address [address] [id number]- Care Team Providers Care Parts Sales Counterperson Name Role Phone Sandra Hernandez NP Primary Care Physician Encounter [email or web address] NBR [id number] Date(s): 06/15/21 - 06/22/21 [facility] [email or web address] [address]- [place] Encounter Diagnosis History of malignant melanoma(Discharge Diagnosis) - 06/15/21 History of traumatic brain injury(Discharge Diagnosis) - 06/15/21 Hyperlipidemia(Discharge Diagnosis) - 06/15/21 Macular degeneration of right eye(Discharge Diagnosis) - 06/15/21 Attending Physician: Sandra Hernandez NP Allergies, Adverse [...] 1 Refills, Maintenance, 06/15/21 10:34:00 EST, Tablet, [id number], Partial fill upon patient [...] Informant History of malignant melanoma Discharge Diagnosis 06/15/21 History of traumatic brain injury Discharge Diagnosis 06/15/21 Hyperlipidemia Discharge Diagnosis 06/15/21 Macular degeneration of right eye Discharge Diagnosis 06/15/21 Vital Signs Most recent to oldest [Reference Range]: 1 Height 174 cm (06/15/21 10:11 AM) Weight 86.9 kg (06/15/21 10:11 AM) Oxygen Saturation [94-100 %] 97 % (06/15/21 10:11 AM) Pulse Rate [55-90 bpm] 80 bpm (06/15/21 10:11 AM) Body Mass Index [18.5-24.99] 28.7 *H* (06/15/21 10:11 AM) Blood Pressure [90-138/55-84 mm Hg] 128/ 82mm Hg (06/15/21 10:11 AM) Mode of Delivery (Oxygen) Room air (06/15/21 10:11 AM) Blood pressure sites Arm, left (06/15/21 10:11 AM) Weight Obtained Via Standing scale (06/15/21 10:11 AM)
--- OUTSIDE RECORDS SUMMARY | 2023-05-18 00:59 | XMS_ITS | Continuity of Care Document ---
Author Name Unknown Organization [facility] Address [address] [place] [address]- Care Team Providers Care Wood Lather Name Role Phone Frantz CLARKE, Soo Chan Primary Care Physicia n Encounter [facility] Date(s): 01/10/23 - 02/09/23 [facility] [address] [place] [address]- Allergies, Adverse Reactions, Alerts No Known Medication Allergies Immunizations Given and Recorded Vaccine Date Status Refusal Reason influenza virus vaccine, inactivated 12/30/21 Jarod rded influenza virus vaccine, inactivated 01/05/21 Jarod rded influenza virus vaccine, inactivated 12/25/19 Jarod rded influenza virus vaccine, inactivated 01/04/19 Jarod rded influenza virus vaccine, inactivated 01/30/18 Jarod rded [id number] 12y+ bivalent booster vax 12/30/21 Recorded SARS-CoV-2 mRNA (nrqvdvz-afqx-fcixu) vax 08/07/21 Recorded SARS-CoV-2 (COVID-19) mRNA BNT-162b2 [...] 0 Refills, Maintenance, 08/30/22 13:50:00 EDT, [id number], Partial fill upon patient request if [...] 1 Refills, Maintenance, 06/14/22 18:24:00 EST, [facility] [id number], 174, cm, 12/28/21 10:02:00 EDT, Height Start [...] Personnel Name: Frantz CLARKE, Soo Chan Position: [facility] Outreach Member Role: PCP Address: Address: [address] [place], [place] [address] [place] [address]- Care Team Related Persons Name: STEVIE GEORGE Address: home [address] [place] [address] Name: REAGAN BATISTA Address: [place] [address]
--- OUTSIDE RECORDS SUMMARY | 2023-05-18 00:59 | XMS_ITS | Continuity of Care Document ---
Author Name Unknown Organization [facility] Address [address] [place] [address]- Care Team Providers Care Diesel Engine Operator Name Role Phone David CLARKE, Sandra Wise Primary Care Physician [phone] [facility] NBR [id number] Date(s): 06/23/22 - 07/23/22 [facility] [address] [place] [address]- [place] Allergies, Adverse Reactions, Alerts No Known [...] Refills, Maintenance, 06/14/22 18:24:00 EST, [id number], 174, cm, 12/28/21 10:02:00 EDT, Height Start [...] Team Personnel Name: Sandra Hernandez NP Position: [facility] PC[facility] Associate Professional Member Role: PCP Address: Address: [address] [place] [address] [place] [address]- Care Team Related Persons Name: STEVIE GEORGE Address: [place] [address] Name: REAGAN BATISTA Address: [place] [address]
--- OUTSIDE RECORDS SUMMARY | 2023-05-18 00:59 | XMS_ITS | Continuity of Care Document ---
Author Name Unknown Organization [facility] Address [address] [place] [address]- Care Team Providers Care Core Measures Abstractor Name Role Phone David CLARKE, Sandra Wise Primary Care Physician Encounter [facility] NBR [id number] Date(s): 08/06/22 - 09/05/22 [facility] [address] [place] [address]- Attending Physician: Admmirian, Salvatore Admitting Physician: Admtr, Ar8 Referring Physician: Admtr, Ar8 Allergies, Adverse Reactions, Alerts No Known Medication Allergies Immunizations Given and Recorded Vaccine Date Status Refusal Reason influenza virus vaccine, inactivated 12/30/21 Jarod rded influenza virus vaccine, inactivated 01/05/21 Jarod rded influenza virus vaccine, inactivated 12/25/19 Jarod rded influenza virus vaccine, inactivated 01/04/19 Jarod rded influenza virus vaccine, inactivated 01/30/18 Jarod rded [id number] 12y+ bivalent booster vax 12/30/21 Recorded SARS-CoV-2 mRNA (ewlxjdx-hjkd-lhzsk) vax 08/07/21 Recorded SARS-CoV-2 (COVID-19) mRNA BNT-162b2 [...] Gm, 0 Refills, Maintenance, 08/30/22 13:50:00 EDT, [facility]pharm[facility] #[id number], Partial fill upon patient request [...] tablet, 1 Refills, Maintenance, 06/14/22 18:24:00 EST, [facility] [id number], 174, cm, 12/28/21 10:02:00 EDT, Height Start [...] 100 in lifetime) entered on: 12/28/21 Sex Laboratory * Event Display: Non Lab Results Authored Date: Radiology * Event Display: X-Ray Hand/Wrist, Non- Authored Date: * Event Display: CT Scan Head, Non- Authored Date: * Event Display: X-Ray Knee, Non- Authored Date: [id number] MG Breast Views * Event Display: MM Mammogram Authored Date: * Event Display: MM Mammogram Authored Date: * Event Display: MM Mammogram Authored Date: Patient Care team information Care Team Personnel Name: Sandra Hernandez NP Position: S PCO Associate Professional Member Role: PCP Address: Address: [address] [place] [address]- Care Team Related Persons Name: STEVIE GEORGE Address: home [address] [place] [address] Name: REAGAN BATISTA Address: [place] [address]
--- OUTSIDE RECORDS SUMMARY | 2023-05-18 00:59 | XMS_ITS | Continuity of Care Document ---
Author Name Unknown Organization [facility] Address [address] [place] [address]- Care Team Providers Care Internet Designer Name Role Phone David CLARKE, Sandra M Primary Care Physician [phone] Encounter [facility] Date(s): 09/17/22 - 10/17/[address] [address] Attending Physician: AdmSalvatore vela Admitting Physician: Admtr, Salvatore Referring Physician: Admtr, Ar8 Allergies, Adverse Reactions, Alerts No Known Medication Allergies Immunizations Given and Recorded Vaccine Date Status Refusal Reason influenza virus vaccine, inactivated 12/30/21 Jarod rded influenza virus vaccine, inactivated 01/05/21 Jarod rded influenza virus vaccine, inactivated 12/25/19 Jarod rded influenza virus vaccine, inactivated 01/04/19 Jarod rded influenza virus vaccine, inactivated 01/30/18 Jarod rded [id number] 12y+ bivalent booster vax 12/30/21 Recorded SARS-CoV-2 mRNA (tzvdpsr-rtko-sxjet) vax 08/07/21 Recorded SARS-CoV-2 (COVID-19) mRNA BNT-162b2 [...] Gm, 0 Refills, Maintenance, 08/30/22 13:50:00 EDT, [facility]/pharm[facility] #[id number], Partial fill upon patient [...] Refills, Maintenance, 06/14/22 18:24:00 EST, [id number], 174, cm, 12/28/21 10:02:00 EDT, Height Start [...] Associate Professional Member Role: PCP Address: Address: [address] [place] [address] [place] [address]- Care Team Related Persons Name: STEVIE GEORGE Address: home [address] [place] [address] Name: REAGAN BATISTA Address: [place] [address]
--- OUTSIDE RECORDS SUMMARY | 2023-05-18 01:00 | XMS_ITS | Continuity of Care Document ---
Author Name Unknown Organization [facility] Address [address] [place] [address]- Care Team Providers Care Guest Service Agent Name Role Phone David CLARKE, Sandra Wise Primary Care Physician [phone] Encounter 06/14/22 - 06/21/22 [facility] [address], [facility] [address] [place] [address]- Attending Physician: Sandra Hernandez NP Admitting Physician: [...] Refills, Maintenance, 06/14/22 18:24:00 EST, [facility]ORE [id number], 174, cm, 12/28/21 10:02:00 EDT, Height Start [...] Exam Date Time Procedure Performing Provider Status 06/14/22 10:55 AM MM Digital Mammo Screening Kriss Zepeda; Auth (Verified) Notes: (MM Digital Mammo Screening) Reason For Exam: Z12.31 SCREENING RESULT: MM Digital Mammo Screening PROCEDURE: MM Digital Mammo Screening INDICATION: Screening for breast cancer. No known palpable abnormalities. COMPARISON: Multiple priors dating back to 10/29/2017, the most recent 06/12/2021 TECHNIQUE: Full-field digital CC and MLO 3D tomosynthesis images of both breasts were acquired. Computer-aided detection (CAD) was utilized in the interpretation of this study. DENSITY: The breast tissue contains scattered areas of fibroglandular density. FINDINGS: There is a linear grouping of coarse microcalcifications in the posterior aspect of the right breast approximately in the nipple line and slightly inferior to the nipple level appearing larger and denser than in the previous examination and possibly also increased in number, although thisis difficult to determine with certainty as more tissue may have been included in the current study. These are visible only in the MLO projection. No suspicious masses, other suspicious microcalcifications, or areas of architectural distortion are seen in either breast to suggest malignancy. IMPRESSION: Increasing conspicuity of coarse microcalcifications in the posterior aspect of the right breast visible only in the MLO projection. Spot magnification MLO 2D imaging of the right breast is recommended for further evaluation. We will contact the patient to schedule the additional imaging. No evidence of malignancy in the left breast. RECOMMENDATION: Right diagnostic mammogram BI-RADS: 0 (Incomplete - Need Additional Imaging Evaluation. Lay letter mailed to patient WSN: [id number] Ordering Physician: Sandra Hernandez Dictated By: Mikie Galdamez MD Dictated Date/Time: 06/14/22 1:13 pm Reviewed By: Mikie Galdamez MD Signed By: Mikie Galdamez MD Signed Date/Time: 06/14/22 1:13 pm Transcribed By: LUIS ALBERTO Director Of Radio Services Date/Time: 06/14/22 1:04 pm Birads: Social History Social History Type Response Smoking Status Never (less than 100 in lifetime) entered on: 12/28/21 Sex MG Breast Screening * [facility] , CIS S: TRANSCRIBE Mikie Galdamez MD: VERIFY Event Display: Result: Authored Date: [id number] PROCEDURE: MM Digital Mammo Screening INDICATION: Screening for breast cancer. No known palpable abnormalities. COMPARISON: Multiple priors dating back to 10/29/2017, the most recent 06/12/2021 TECHNIQUE: Full-field digital CC and MLO 3D tomosynthesis images of both breasts were acquired. Computer-aided detection (CAD) was utilized in the interpretation of this study. DENSITY: The breast tissue contains scattered areas of fibroglandular density. FINDINGS: There is a linear grouping of coarse microcalcifications in the posterior aspect of the right breast approximately in the nipple line and slightly inferior to the nipple level appearing larger and denser than in the previous examination and possibly also increased in number, although thisis difficult to determine with certainty as more tissue may have been included in the current study. These are visible only in the MLO projection. No suspicious masses, other suspicious microcalcifications, or areas of architectural distortion are seen in either breast to suggest malignancy. IMPRESSION: Increasing conspicuity of coarse microcalcifications in the posterior aspect of the right breast visible only in the MLO projection. Spot magnification MLO 2D imaging of the right breast is recommended for further evaluation. We will contact the patient to schedule the additional imaging. No evidence of malignancy in the left breast. RECOMMENDATION: Right diagnostic mammogram BI-RADS: 0 (Incomplete - Need Additional Imaging Evaluation. Lay letter mailed to patient WSN: [id number] Ordering Physician: Sandra Hernandez Dictated By: Mikie Galdamez MD Dictated Date/Time: 06/14/22 1:13 pm Reviewed By: Mikie Galdamez MD Signed By: Mikie Galdamez MD Signed Date/Time: 06/14/22 1:13 pm Transcribed By: LUIS ALBERTO Director Of Radio Services Date/Time: 06/14/22 1:04 pm Birads: Patient Care team information Care Team Personnel Name: Sandra Hernandez NP Position: S PCO Associate Professional Member Role: PCP Address: Address: [address] [place] [address]- Care Team Related Persons Name: STEVIE GEORGE Name: REAGAN BATISTA Address: [place] [address]
--- OUTSIDE RECORDS SUMMARY | 2023-05-18 01:00 | XMS_ITS | Continuity of Care Document ---
Author Name Unknown Organization [facility] Address [address] [place] [address]- Care Team Providers Care Welder First Class Name Role Phone David WARD MAID, Sandra Wise Primary Care Physician [phone] Encounter [facility] Date(s): 03/23/21 - 04/22/[address] [address]- Attending Physician: Admtr, Ar8 Admitting Physician: Admtr, Ar8 Referring Physician: Admtr, [...] Daily, # 30 tablet, 0 Refills, Maintenance, 02/19/21 13:58:00 EDT, [facility]t, [facility], Partial fill upon patient request if the prescription is for a schedule II opioid drug., 174, cm, 12/15/20 10:05:00 EDT, Height Start Date: 02/19/21 Status: Ordered Problem List Condition Effective Dates Status Health Status Inform ant Macular degeneration of righ t eye(Confirmed) Active History of traumatic brain injury(Confirmed) Active Hyperlipidemia(Confirmed) Active
--- OUTSIDE RECORDS SUMMARY | 2023-05-18 01:00 | XMS_ITS | Continuity of Care Document ---
Author Name Unknown Organization [facility] Address [address] [phone]- Care Team Providers Care Director Presales Name Role Phone David CLARKE, Sandra Wise Primary Care Physician [phone] Encounter [facility] Date(s): 12/11/21 - [facility] [address] [phone]- [place] Allergies, Adverse Reactions, Alerts No Known [...] Refills, Maintenance, 12/24/21 7:32:00 EDT, [facility], 174, cm, 06/15/21 10:11:00 EST, Height Start [...] Team Personnel Name: Sandra Hernandez NP Address: [address] [place] [address]
--- OUTSIDE RECORDS SUMMARY | 2023-05-18 01:00 | XMS_ITS | Continuity of Care Document ---
Author Name Unknown Organization [facility] Address [address] [phone]- Care Team Providers Care Pharmacist Per Diem Name Role Phone David CLARKE, Sandra Wise Primary Care Physician En[facility] NBR [id number] Date(s): 06/24/22 - 07/24/22 [facility] [address] [place] [address]- [place] Allergies, Adverse Reactions, Alerts No Known [...] Refills, Maintenance, 06/14/22 18:24:00 EST, [facility], 174, cm, 12/28/21 10:02:00 EDT, Height Start [...] Team Personnel Name: Sandra Hernandez NP Position: [facility] PCO Associate Professional Member Role: PCP Address: Address: [address] [place] [address] [place] [address]- Care Team Related Persons Name: STEVIE GEORGE Address: [place] [address] Name: REAGAN BATISTA Address: [place] [address]
[2023-05-18 01:46] LABS: Appearance Urine Clear; Color Urine Yellow; Glucose Urine UA Negative (Negative); Leukocyte Esterase Urine Negative (Negative); Nitrite Urine Negative (Negative); PH 5.5 (5.0-9.0); Specific Gravity - Urine >= 1.030 (1.005-1.025); Urine Blood Negative (Negative); Urine Ketones Trace mg/dL (Negative); Urine Protein Negative (Neg-Trace)
[2023-05-18] MEDS: iohexoL 350 MG/ML 100 ML INFUS..BTL 85 ML IV (02:42)
--- NOTE | 2023-05-18 04:15 | PM.IMHP ---
History of Present Illness Date of Service: 05/18/23 Chief Complaint: Fever and confusion This is a 63-year-old female with pertinent history of TBI, cognitive impairment, history of melanoma status post brain surgery, mixed hyperlipidemia who was brought to the emergency department for evaluation of fever and confusion. At baseline the patient has occasional memory issues. History obtained by ER provider and chart review. Patient not a reliable historian. History also obtained via spouse through phone. Patient was found lethargic and altered on the day of presentation. She was also found to have a fever and hence was brought to the ER. No cough, vomiting as per the spouse. Unable to obtain complete review of systems. In the emergency department, patient was found to be febrile with fever of 102.3. Imaging without acute abnormality. WBC within normal limits. Patient was initiated on empiric IV antibiotics and antivirals in the ER. Review of Systems Review of Systems: Yes Unobtainable due to mental condition and Unobtainable due to mental status PMFSH Medical History Hyperlipidemia Cognitive impairment Melanoma Hearing loss TBI (traumatic brain injury) Pertinent family history: Unable to obtain Social History Alcohol intake: never Patient Tobacco Use Status: Never used Tobacco Smoked in Last 30 Days: No Use of substances other than those prescribed or required for medical reasons: No Advance Directives: No Advance Directives Information Provided: Yes Meds Allergies Allergy/AdvReac Type Severity Reaction Status Date / Time No Known Allergies Allergy Verified 05/17/23 23:42 Active Medications: Current Medications Vancomycin HCl (Vancomycin/Ns) 2,000 mg in 520 mls @ 250 mls/hr IV ONCE ONE Stop: 05/18/23 05:49 Pharmacy Consult (Consult Rx Vancomycin Dosing) 1 each MISCELLANE DAILY PRN PRN Reason: Consult order Physical Exam Vital Signs and Narrative: Vital Signs: Last Vital Signs Temp 97.9 F 05/18/23 02:43 Pulse 67 05/18/23 02:43 Resp 18 05/18/23 02:43 BP 116/50 L 05/18/23 02:43 Pulse Ox 97 05/18/23 02:43 O2 Del Method Room Air 05/18/23 02:43 BMI result Body Mass Index 29.8 Middle-aged female lying in bed in no distress Neck supple, no JVD Regular rate and rhythm, S1-S2 heard Regular breath sounds bilaterally, no wheezing or crackles appreciated Abdomen soft nontender, no guarding, no rigidity Patient awakens to verbal stimulus, oriented to self and place, disoriented to time, intermittent appropriate responses to questions No pedal edema Results Labs 05/17/23 23:59 05/17/23 23:59 Labs: Laboratory Results - last 24 hr 05/17/23 05/18/23 05/18/23 23:59 00:06 00:10 MCV 92.1 MCH 32.4 MCHC 35.2 H RDW 13.1 Plt Count 174 MPV 10.1 Immature Gran % (Auto) 0.1 Neut % (Auto) 77.6 H Lymph % (Auto) 11.6 L [place] % (Auto) 10.2 Eos % (Auto) 0.1 Baso % (Auto) 0.4 Lymph # (Auto) 0.9 L [place] # (Auto) 0.8 Eos # (Auto) 0.0 Baso # (Auto) 0.0 Abs Immat Gran (auto) 0.01 Absolute Neuts (auto) 5.8 Absolute Nucleated RBC 0.000 Nucleated RBC % (auto) 0.0 VBG pH 7.41 VBG pCO2 40 VBG pO2 47 VBG HCO3 26 VBG O2 Saturation 75.0 VBG Base Excess 1.5 Anion Gap 11 L Estim Creat Clear Calc 57.4 Estimated GFR 48 Random Glucose 113 Lactic Acid 1.3 Calcium 9.6 Magnesium 2.1 Total Bilirubin 0.6 Direct Bilirubin 0.2 AST 31 ALT 34 H Alkaline Phosphatase 59 Total Protein 7.5 Albumin 4.3 Lipase 30 Procalcitonin 0.08 TSH 0.86 Urine Color Urine Appearance Urine pH Ur Specific [place] Urine Protein Urine Glucose (UA) Urine Ketones Urine Blood Urine Nitrite Ur Leukocyte Esterase COVID-19 (JUAN) Negative COVID-19 Clin Com See Note Influenza Type A (MISA) Negative Influenza Type B (MISA) Negative Influenza A & B Note See Note 05/18/23 01:39 MCV MCH MCHC RDW Plt Count MPV Immature Gran % (Auto) Neut % (Auto) Lymph % (Auto) [place] % (Auto) Eos % (Auto) Baso % (Auto) Lymph # (Auto) [place] # (Auto) Eos # (Auto) Baso # (Auto) Abs Immat Gran (auto) Absolute Neuts (auto) Absolute Nucleated RBC Nucleated RBC % (auto) VBG pH VBG pCO2 VBG pO2 VBG HCO3 VBG O2 Saturation VBG Base Excess Anion Gap Estim Creat Clear Calc Estimated GFR Random Glucose Lactic Acid Calcium Magnesium Total Bilirubin Direct Bilirubin AST ALT Alkaline Phosphatase Total Protein Albumin Lipase Procalcitonin TSH Urine Color Yellow Urine Appearance Clear Urine pH 5.5 Ur Specific [place] >= 1.030 H Urine Protein Negative Urine Glucose (UA) Negative Urine Ketones Trace Urine Blood Negative Urine Nitrite Negative Ur Leukocyte Esterase Negative COVID-19 (JUAN) COVID-19 Clin Com Influenza Type A (MISA) Influenza Type B (MISA) Influenza A & B Note Imaging Radiologist's Impressions: Impressions Chest X-Ray 05/17/23 23:48 IMPRESSION: Mild bibasilar atelectasis. No acute pulmonary findings. Head CT 05/18/23 02:25 IMPRESSION: 1. No acute intracranial pathology. Chronic small vessel ischemic disease and volume loss. 2. Mottled lucent appearance of the calvarium, of uncertain chronicity without prior studies for comparison. Considerations would include sequelae of multiple myeloma or metastases in the proper clinical setting. Abdomen/Pelvis CT 05/18/23 02:30 IMPRESSION: 1. No acute findings identified in the chest, abdomen, or pelvis. Of note, there is suboptimal assessment in some regions due to motion artifact. 2. Prominent fluid density structures in the bilateral renal sinuses, most consistent with renal sinus cysts. 3. Partially calcified splenic artery aneurysm which may measure up to 2.7 cm, though this is difficult to accurately measure due to motion artifact. Chest CT 05/18/23 02:30 IMPRESSION: 1. No acute findings identified in the chest, abdomen, or pelvis. Of note, there is suboptimal assessment in some regions due to motion artifact. 2. Prominent fluid density structures in the bilateral renal sinuses, most consistent with renal sinus cysts. 3. Partially calcified splenic artery aneurysm which may measure up to 2.7 cm, though this is difficult to accurately measure due to motion artifact. Assessment and Plan (1) Acute febrile illness: Status: Acute Plan This is a 63-year-old female with pertinent history of TBI, cognitive impairment, history of melanoma status post brain surgery, mixed hyperlipidemia who was brought to the emergency department for evaluation of fever and confusion. #. Acute febrile illness: Initiated on empiric IV antibiotics and antivirals. Imaging without acute abnormality and urine not concerning for UTI. LP in a.m. Follow CSF studies and urine culture. WBC and procalcitonin within normal limits. Obtaining TSH and venous duplex for noninfectious causes of fever #. Acute metabolic encephalopathy in the setting of above. Monitor mentation #. Mottled appearance of the calvarium on imaging: ?mets causing fever. Consider Oncology consult once infectious cause ruled out #. Mixed hyperlipidemia: On statin #. Cognitive impairment: Maintain sleep-wake cycle Med rec pending DVT prophylaxis: Lovenox Full code Admit as inpatient and will require two night minimum hospital stay for IV medications, evaluation of acute febrile illness and monitoring of mentation (as above), which is not possible in a lesser acute setting. Quality Stroke Does the patient have a stroke diagnosis?: No VTE Prior VTE?: No VTE Risk Level:: Medical - moderate - high VTE Device Contraindication: Treatment Not Indicated VTE Drug Contraindication: N/A - Med Ordered
--- NOTE | 2023-05-18 05:32 | PC.NURSE ---
Addendum entered by Barbara Rico RN 05/18/23 05:51: Correction: patient was at ultrasound. Patient returned to room at this time. Original Note: Patient at fluroscopy for LP.
[2023-05-18 05:34] LABS: MANUAL DIFF FLAG NO
[2023-05-18 05:36] LABS: Basophils Percent Auto 0.5 % (0-2); Eosinophils Percent Auto 0.2 % (0-4); Hematocrit 37.8 % (37.0-47.0); Hemoglobin 12.9 g/dl (12.0-16.0); Imm Gran Abs Auto 0.02 X10*3/uL (0.00-0.03); Imm Gran Pct Auto 0.3 % (0.0-0.4); Lymphocytes Absolute Auto 1.6 X10*3/uL (1.2-4.9); Lymphocytes Percent Auto 24.5 % (20-40); Mean Corpuscular HGB Conc 34.1 g/dl (31.0-35.0); Mean Corpuscular Hemoglobin 31.7 pg (27.0-33.0); Mean Corpuscular Volume 92.9 fL (80.0-98.0); Mean Platelet Volume 10.1 fL (9.4-12.3); Monocytes Absolute Auto 0.6 X10*3/uL (0.1-1.2); Monocytes Percent Auto 9.6 % (2-11); Neutrophils Absolute Auto 4.2 x10*3/uL (2.0-8.3); Neutrophils Percent Auto 64.9 % (45-73); Platelet Count 146 X10*3/uL (160-400); Red Blood Count 4.07 X10*6/uL (4.20-5.50); Red Cell Distribution Width 13.2 % (11.0-16.0); White Blood Count 6.5 X10*3/uL (4.8-10.8)
[2023-05-18] MEDS: Ampicillin Sodium 2 GM in 0.9 % Sodium Chloride 100 ML IV ×4 (05:56→21:34)
[2023-05-18 05:57] LABS: Anion Gap 12 (12-20); Blood Urea Nitrogen 14 mg/dL (9-16); Carbon Dioxide 21 mmol/L (22-29); Chloride 111 mmol/L (96-108); Creatinine Clr Calc Pharmacy 72.7; Estimated Glomerular Filt Rate > 60; Glucose Random 112 mg/dL (60-115); Potassium 3.9 mmol/L (3.3-5.1); Sodium 140 mmol/L (135-145)
[2023-05-18] MEDS: dexAMETHasone sod phosphate 10 MG/ML VIAL IVPUSH (05:57)
[2023-05-18 06:02] LABS: Calcium 8.6 mg/dL (8.4-10.2)
[2023-05-18 06:18] LABS: Thyroid Stimulating Hormone 0.65 uIU/mL (0.32-4.0)
--- NOTE | 2023-05-18 07:08 | PHA.PROG ---
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 Weight in k.9 kg Adjusted body weight in K.9 [place] body weight in K.9 Obesity Dosing Indication % IBW: not obese Serum Creatinine - Last 168 Hours 05/17/23 05/18/23 23:59 05:13 Creatinine 1.14 0.90 Estimated CrCl and GFR - Last 168 Hours 05/17/23 05/18/23 23:59 05:13 Estim Creat Clear Calc 57.4 72.7 Estimated GFR 48 > 60 Vancomycin Loading Dose: 2000 Current Vancomycin Dosing Regimen: 1000 Q12 Vancomycin Monitoring using AUC goal of 400 - 600 range with trough as surrogate marker: 561 Date and Time for next Vancomycin Level to be drawn: 05/19 @1600 Pharmacist Comments on Vancomycin Plan: Vancomycin dosing will take advantage of [employer] as a clinical decision support tool that uses Bayesian modeling to calculate individual patient's pharmacokinetic parameters and forecast the patient's drug concentration time course with the target goal AUC 24 range of 400 - 600 mg/L/hr.
--- NOTE | 2023-05-18 08:04 | PHA.MEDREC ---
Pharmacy Consult ? Medication Reconciliation Pharmacy has completed the medication reconciliation. Spoke to Damion on the phone ([phone]) to confirm medications
[2023-05-18 08:32] LABS: INTERNATIONAL NORM RATIO 1.2 (0.9-1.1)
[2023-05-18] MEDS: 0.9 % Sodium Chloride Flush 3 ML SYRINGE IVFLUSH ×2 (09:09→21:34)
[2023-05-18] MEDS: cefTRIAXone sodium 2 GM in 0.9 % Sodium Chloride 50 ML IV (09:17)
--- NOTE | 2023-05-18 09:31 | MHC.CM.PN ---
CM met with Patient in the ED, at bedside. Patient lives with her /HCP/Caregiver and she required no services nor DME DAM TENDER ASSISTANT. Home/self care is the goal and CM has initiated and will follow for dc planning. PCP/FOOD SAFETY FIELD SPECIALIST is Soo Landry.
--- NOTE | 2023-05-18 10:21 | P.PNIM_ITS ---
Subjective Subjective Date of Service: 05/18/23 Interval History: feeling a bit foggy, no specific complaints Physical Exam 2 Vital Signs: Vital Signs: Last Vital Signs Temp 97.8 F 05/18/23 06:35 Pulse 68 05/18/23 06:35 Resp 16 05/18/23 06:35 BP 108/42 L 05/18/23 06:35 Pulse Ox 95 05/18/23 06:35 O2 Del Method Room Air 05/18/23 06:35 BMI result Body Mass Index 29.8 General: AO X 2, no acute distress Resp: CTA bilateral, no accessory muscles used CVS: S1,S2,RRR GI: soft, non tender, non distended Neuro: motor grossly intact, alert Psych: appropriate affect, appropriate insight Objective Data Active Medications Acetaminophen (Acetaminophen 325 Mg Tablet) 650 mg PO Q6H PRN PRN Reason: Pain, Mild (Pain Scale 1-3) Acetaminophen (Acetaminophen Supp 650 Mg Supp.Rect) 650 mg [place] Q6H PRN PRN Reason: Pain, Mild (Pain Scale 1-3) Enoxaparin Sodium (Enoxaparin Sodium 40 Mg/0.4 Ml Syringe) 40 mg SUBCUT Q24H [facility] [place] Acyclovir Sodium 739 mg/ (Sodium Chloride) 264.78 mls @ 264.78 mls/hr IV Q8H [facility] Ceftriaxone Sodium 2 gm/ (Sodium Chloride) 50 mls @ 100 mls/hr IV Q12H [facility] [place] Last Infusion: 05/18/23 09:52 Dose: Infused Documented By: MELISSA Ampicillin Sodium 2 gm/ Sodium (Chloride) 100 mls @ 200 mls/hr IV Q4H [facility] [place] Last Admin: 05/18/23 09:51 Dose: 200 mls/hr Documented By: MELISSA Vancomycin HCl 1,000 mg/ (Sodium Chloride) 270 mls @ 270 mls/hr IV Q12H [facility] [place] Melatonin (Melatonin 3 Mg Tablet) 6 mg PO BEDTIME PRN PRN Reason: Insomnia Multivitamins/Vitamin C (Multivitamin Tablet) 1 tab PO DAILY [facility] Ondansetron HCl (Ondansetron Hcl 4 Mg/2 Ml Vial) 4 mg IVPUSH Q8H PRN PRN Reason: Nausea and Vomiting Pharmacy Consult (Consult Rx Vancomycin Dosing) 1 each MISCELLANE DAILY PRN PRN Reason: Consult order Sodium Chloride (0.9 % Sodium Chloride Flush 3 Ml Syringe) 3 ml IVFLUSH QSHIFT [facility] Last Admin: 05/18/23 09:09 Dose: 3 ml Documented By: MELISSA Labs 05/18/23 05:13 05/18/23 05:13 Labs: Laboratory Results - last 24 hr 05/17/23 05/18/23 05/18/23 23:59 00:06 00:10 MCV 92.1 MCH 32.4 MCHC 35.2 H RDW 13.1 Plt Count 174 MPV 10.1 Immature Gran % (Auto) 0.1 Neut % (Auto) 77.6 H Lymph % (Auto) 11.6 L [place] % (Auto) 10.2 Eos % (Auto) 0.1 Baso % (Auto) 0.4 Lymph # (Auto) 0.9 L [place] # (Auto) 0.8 Eos # (Auto) 0.0 Baso # (Auto) 0.0 Abs Immat Gran (auto) 0.01 Absolute Neuts (auto) 5.8 Absolute Nucleated RBC 0.000 Nucleated RBC % (auto) 0.0 PT INR VBG pH 7.41 VBG pCO2 40 VBG pO2 47 VBG HCO3 26 VBG O2 Saturation 75.0 VBG Base Excess 1.5 Anion Gap 11 L Estim Creat Clear Calc 57.4 Estimated GFR 48 Random Glucose 113 Lactic Acid 1.3 Calcium 9.6 Magnesium 2.1 Total Bilirubin 0.6 Direct Bilirubin 0.2 AST 31 ALT 34 H Alkaline Phosphatase 59 Total Protein 7.5 Albumin 4.3 Lipase 30 Procalcitonin 0.08 TSH 0.86 Urine Color Urine Appearance Urine pH Ur Specific [place] Urine Protein Urine Glucose (UA) Urine Ketones Urine Blood Urine Nitrite Ur Leukocyte Esterase COVID-19 (JUAN) Negative COVID-19 Clin Com See Note Influenza Type A (MISA) Negative Influenza Type B (MISA) Negative Influenza A & B Note See Note 05/18/23 05/18/23 05/18/23 01:39 05:13 08:17 MCV 92.9 MCH 31.7 MCHC 34.1 RDW 13.2 Plt Count 146 L MPV 10.1 Immature Gran % (Auto) 0.3 Neut % (Auto) 64.9 Lymph % (Auto) 24.5 [place] % (Auto) 9.6 Eos % (Auto) 0.2 Baso % (Auto) 0.5 Lymph # (Auto) 1.6 [place] # (Auto) 0.6 Eos # (Auto) 0.0 Baso # (Auto) 0.0 Abs Immat Gran (auto) 0.02 Absolute Neuts (auto) 4.2 Absolute Nucleated RBC 0.000 Nucleated RBC % (auto) 0.0 PT 14.0 H INR 1.2 H VBG pH VBG pCO2 VBG pO2 VBG HCO3 VBG O2 Saturation VBG Base Excess Anion Gap 12 Estim Creat Clear Calc 72.7 Estimated GFR > 60 Random Glucose 112 Lactic Acid Calcium 8.6 D Magnesium Total Bilirubin Direct Bilirubin AST ALT Alkaline Phosphatase Total Protein Albumin Lipase Procalcitonin TSH 0.65 Urine Color Yellow Urine Appearance Clear Urine pH 5.5 Ur Specific [place] >= 1.030 H Urine Protein Negative Urine Glucose (UA) Negative Urine Ketones Trace Urine Blood Negative Urine Nitrite Negative Ur Leukocyte Esterase Negative COVID-19 (JUAN) COVID-19 Clin Com Influenza Type A (MISA) Influenza Type B (MISA) Influenza A & B Note Assessment and Plan (1) Acute febrile illness: Status: Acute Plan 63F PMH TBI, cognitive impairment, melanoma s/p craniotomy, hld presented with fever and ams SIRS, acute metabolic encephalopathy more alert now refusing LP continue empiric vanc, rocephin, acyclovir ID eval follow up cultures dvt prophyalxis - lovenox full code reason for continued hospitalization:awaiting defervesence, cultures Quality Stroke Does the patient have a stroke diagnosis?: No VTE Prior VTE?: No VTE Risk Level:: Medical - moderate - high VTE Device Contraindication: Treatment Not Indicated VTE Drug Contraindication: N/A - Med Ordered
--- NOTE | 2023-05-18 10:29 | PC.NURSE ---
right hand IV infiltrated and was discontinued
--- NOTE | 2023-05-18 11:16 | PC.NURSE ---
IV Vanco still infusing although almost one, problem with line that it was infusing into. will contact pharmacy once done
--- NOTE | 2023-05-18 11:21 | PC.NURSE ---
BELTRAN Brown finished infusing at 11:15 without complications
--- NOTE | 2023-05-18 12:57 | PC.NURSE ---
called and spoke to Samy in pharmacy questioning weight based for her Aciclovir IV as her actual weight in the computer is different; Samy told us that they put the weight in for this med as the suggested weight based once making this medication.
--- NOTE | 2023-05-19 00:08 | P.CNID_ITS ---
History of Present Illness Data of Consult Service Date: 05/18/23 Requesting physician: Nikolas Bonilla Primary Care Provider: Soo Landry NP HPI Reason for consult: fever of unknown origin She presents with complaints weakness. She hasnt seen PCP for while She had fever but resolve before admission Review of Systems 2 Review of Systems: Yes all other systems are reviewed and are negative PMFSH Past Medical History Medical History Hyperlipidemia Cognitive impairment Melanoma Hearing loss TBI (traumatic brain injury) Social History Social History Household Members: Spouse Housing: House Do you presently have visiting nurse or other home services: No Alcohol intake: never Patient Tobacco Use Status: Never used Tobacco service: No Meds Allergies Allergy/AdvReac Type Severity Reaction Status Date / Time No Known Allergies Allergy Verified 05/17/23 23:42 Active Medications: Current Medications Acetaminophen (Acetaminophen 325 Mg Tablet) 650 mg PO Q6H PRN PRN Reason: Pain, Mild (Pain Scale 1-3) Acetaminophen (Acetaminophen Supp 650 Mg Supp.Rect) 650 mg [place] Q6H PRN PRN Reason: Pain, Mild (Pain Scale 1-3) Enoxaparin Sodium (Enoxaparin Sodium 40 Mg/0.4 Ml Syringe) 40 mg SUBCUT Q24H [facility] Ampicillin Sodium 2 gm/ Sodium (Chloride) 100 mls @ 200 mls/hr IV Q4H [facility] Last Infusion: 05/18/23 22:38 Dose: Infused Melatonin (Melatonin 3 Mg Tablet) 6 mg PO BEDTIME PRN PRN Reason: Insomnia Multivitamins/Vitamin C (Multivitamin Tablet) 1 tab PO DAILY [facility] Ondansetron HCl (Ondansetron Hcl 4 Mg/2 Ml Vial) 4 mg IVPUSH Q8H PRN PRN Reason: Nausea and Vomiting Pharmacy Consult (Consult Rx Vancomycin Dosing) 1 each MISCELLANE DAILY PRN PRN Reason: Consult order Sodium Chloride (0.9 % Sodium Chloride Flush 3 Ml Syringe) 3 ml IVFLUSH QSHIFT [facility] Last Admin: 05/18/23 21:34 Dose: 3 ml Home Medications ?Medication ?Instructions ?Recorded ?Confirmed ?Last Taken ?Type betamethasone dipropionate 0.05 % 1 appl topical DAILY 05/18/23 05/18/23 Unknown History topical cream calcium 600 mg (as 1 tab PO DAILY 05/18/23 05/18/23 Unknown History carbonate)-vitamin D3 5 mcg (200 unit) tablet multivitamin 1 tab PO DAILY 05/18/23 05/18/23 Unknown History rosuvastatin 10 mg tablet 10 mg PO DAILY 05/18/23 05/18/23 Unknown History vit C 250 mg-vit E 90 mg-zinc 40 1 tab PO BID 05/18/23 05/18/23 Unknown History mg-copper 1 [id number] capsule (PreserVision AREDS-2) Physical Exam 2 Vital Signs: Vital Signs: Last Vital Signs Temp 97.7 F 05/18/23 19:51 Pulse 68 05/18/23 19:51 Resp 18 05/18/23 19:51 BP 129/60 05/18/23 19:51 Pulse Ox 94 05/18/23 19:51 O2 Del Method Room Air 05/18/23 19:51 O2 Flow Rate 1 05/18/23 16:18 BMI result Body Mass Index 30.8 Const: General: cooperative HEENT: Head: Yes normal to inspection Face and sinus: Yes normal facial exam Mouth: Normal oral and palatal mucosa present Teeth and gingiva: d entition normal Eyes: General: appearance normal, both eyes and all related structures P upils: Equal, round and reactive pupils present Resp: Effort & Inspection: normal respiratory effort Cardio: Rate: regular rate Rhythm: regular rhythm GI: Palpation (GI): Soft to palpation and nontender : General: Yes no CVA tenderness Back/Spine/Pelvis: Back: no CVA tenderness Skin: General skin exam: no rashes or lesions noted Neuro: General: moves all extremities Cranial nerves: Yes Equal, round and reactive pupils present Extrem: General: Yes normal to inspection Psych: Appearance: grossly normal Results Labs 05/19/23 05:52 05/19/23 05:52 Labs: Short CBC 05/17/23 05/18/23 Range/Units 23:59 05:13 WBC 7.4 6.5 (4.8-10.8) X10*3/uL Hgb 14.7 12.9 (12.0-16.0) g/dl Hct 41.8 37.8 (37.0-47.0) % Plt Count 174 146 L (160-400) X10*3/uL BMP 05/17/23 05/18/23 23:59 05:13 Sodium 140 140 Potassium 4.0 3.9 Chloride 110 H 111 H Carbon Dioxide 23 21 L BUN 16 14 Creatinine 1.14 0.90 Calcium 9.6 8.6 D Liver Function 05/17/23 Range/Units 23:59 Total Bilirubin 0.6 (0.0-1.0) mg/dL Direct Bilirubin 0.2 (0.0-0.5) mg/dL AST 31 (5-31) U/L ALT 34 H (0-31) U/L Alkaline Phosphatase 59 (39-117) U/L Albumin 4.3 (3.5-5.0) g/dL Urine 05/18/23 Range/Units 01:39 Urine Color Yellow Urine Appearance Clear Urine pH 5.5 (5.0-9.0) Ur Specific [place] >= 1.030 H (1.005-1.025) Urine Protein Negative (Neg-Trace) mg/dL Urine Glucose (UA) Negative (Negative) mg/dL Assessment and Plan (1) Acute febrile illness: Status: Resolved Possible viral syndrome No signs of fever now (2) Altered mental status: Qualifiers: Altered mental status type: delirium Qualified Code(s): R41.0 - Disorientation, unspecified Status: Resolved She may have viral syndrome No evidence gross infection and patient not able to describe symptoms so may take off antibiotics and observe S Plan Await any final cultures No need LP at this time
[2023-05-19] MEDS: Ampicillin Sodium 2 GM in 0.9 % Sodium Chloride 100 ML IV ×2 (01:21→05:15)
[2023-05-19 03:34] VITALS: BP 128/71; PULSE 71; RESP 18; TEMP 37.1; O2SAT 93
[2023-05-19 06:27] LABS: Hematocrit 36.1 % (37.0-47.0); Hemoglobin 12.6 g/dl (12.0-16.0); Mean Corpuscular HGB Conc 34.9 g/dl (31.0-35.0); Mean Corpuscular Hemoglobin 32.4 pg (27.0-33.0); Mean Corpuscular Volume 92.8 fL (80.0-98.0); Mean Platelet Volume 10.7 fL (9.4-12.3); Platelet Count 157 X10*3/uL (160-400); Red Blood Count 3.89 X10*6/uL (4.20-5.50); Red Cell Distribution Width 13.2 % (11.0-16.0)
[2023-05-19 06:29] LABS: Anion Gap 12 (12-20); Blood Urea Nitrogen 13 mg/dL (9-16); Calcium 8.4 mg/dL (8.4-10.2); Carbon Dioxide 21 mmol/L (22-29); Chloride 114 mmol/L (96-108); Creatinine Clr Calc Pharmacy 76.3; Estimated Glomerular Filt Rate > 60; Glucose Fasting 123 mg/dL (60-99); Potassium 3.9 mmol/L (3.3-5.1); Sodium 143 mmol/L (135-145)
[2023-05-19 07:17] VITALS: BP 122/58; PULSE 80; RESP 16; TEMP 36; O2SAT 96
[2023-05-19] MEDS: 0.9 % Sodium Chloride Flush 3 ML SYRINGE IVFLUSH (08:32)
[2023-05-19] MEDS: Multivitamin TABLET 1 TAB PO (08:32)
--- NOTE | 2023-05-19 08:56 | P.PNIM_ITS ---
Subjective Subjective Date of Service: 05/19/23 Interval History: wants to go home Physical Exam 2 Vital Signs: Vital Signs: Last Vital Signs Temp 96.8 F 05/19/23 07:17 Pulse 80 05/19/23 07:17 Resp 16 05/19/23 07:17 BP 122/58 L 05/19/23 07:17 Pulse Ox 96 05/19/23 07:17 O2 Del Method Room Air 05/19/23 07:17 O2 Flow Rate 1 05/18/23 16:18 BMI result Body Mass Index 30.8 alert oriented to person, place, not time, difficulty with word finding, borderline insight Objective Data Active Medications Acetaminophen (Acetaminophen 325 Mg Tablet) 650 mg PO Q6H PRN PRN Reason: Pain, Mild (Pain Scale 1-3) Acetaminophen (Acetaminophen Supp 650 Mg Supp.Rect) 650 mg [place] Q6H PRN PRN Reason: Pain, Mild (Pain Scale 1-3) Enoxaparin Sodium (Enoxaparin Sodium 40 Mg/0.4 Ml Syringe) 40 mg SUBCUT Q24H [facility] Melatonin (Melatonin 3 Mg Tablet) 6 mg PO BEDTIME PRN PRN Reason: Insomnia Multivitamins/Vitamin C (Multivitamin Tablet) 1 tab PO DAILY [facility] Last Admin: 05/19/23 08:32 Dose: 1 tab Documented By: CONTRERAS Ondansetron HCl (Ondansetron Hcl 4 Mg/2 Ml Vial) 4 mg IVPUSH Q8H PRN PRN Reason: Nausea and Vomiting Pharmacy Consult (Consult Rx Vancomycin Dosing) 1 each MISCELLANE DAILY PRN PRN Reason: Consult order Sodium Chloride (0.9 % Sodium Chloride Flush 3 Ml Syringe) 3 ml IVFLUSH QSHIFT [facility] Last Admin: 05/19/23 08:32 Dose: 3 ml Documented By: CONRTERAS Labs 05/19/23 05:52 05/19/23 05:52 Labs: Laboratory Results - last 24 hr 05/19/23 05:52 MCV 92.8 MCH 32.4 MCHC 34.9 RDW 13.2 Plt Count 157 L MPV 10.7 Absolute Nucleated RBC 0.000 Nucleated RBC % (auto) 0.0 Anion Gap 12 Estim Creat Clear Calc 76.3 Estimated GFR > 60 Fasting Glucose 123 H Calcium 8.4 Microbiology Microbiology Results: Microbiology 05/18/23 00:06 Blood Culture - Preliminary Blood - Venous No growth after 24 hours. 05/17/23 23:58 Blood Culture - Preliminary Blood - Venous No growth after 24 hours. Assessment and Plan (1) Acute febrile illness: Status: Acute Plan 63F PMH TBI, cognitive impairment, melanoma s/p craniotomy, hld presented with fever and ams SIRS, acute metabolic encephalopathy ? back to baseline ID appreciated - possibel viral illness, monitor off antibiotics, cultures negative to date PT eval dvt prophyalxis - lovenox full code reason for continued hospitalization:awaiting defervesence, cultures Quality Stroke Does the patient have a stroke diagnosis?: No VTE Prior VTE?: No VTE Risk Level:: Medical - moderate - high VTE Device Contraindication: Treatment Not Indicated VTE Drug Contraindication: N/A - Med Ordered
--- NOTE | 2023-05-19 11:01 | P.DS_ITS ---
DS: Providers Provider Date of Service: 05/19/23 Date of admission: 05/18/23 04:14 Primary care physician: Soo Landry NP Consults: 05/18/23 07:39 Consult to Infectious Diseases Routine Consulting Provider: [facility] [place] [facility] Infectious Disease Reason for consultation: febrile illness without clear source DS: Diagnosis Discharge Diagnosis (1) Acute febrile illness: Status: Acute (2) Altered mental status: Status: Acute DS: Summary Hospital Course Hospital Course: from initial hpi: 63-year-old female with pertinent history of TBI, cognitive impairment, history of melanoma status post brain surgery, mixed hyperlipidemia who was brought to the emergency department for evaluation of fever and confusion. At baseline the patient has occasional memory issues. History obtained by ER provider and chart review. Patient not a reliable historian. History also obtained via spouse through phone. Patient was found lethargic and altered on the day of presenta tion. She was also found to have a fever and hence was brought to the ER. No cough, vomiting as per the spouse. Unable to obtain complete review of systems. In the emergency department, patient was found to be febrile with fever of 102.3. Imaging without acute abnormality. WBC within normal limits. Patient was initiated on empiric IV antibiotics and antivirals in the ER. hospital course: Patient was admitted for SIRS complicated by acute metabolic encephalopathy. She was initially treated with broad-spectrum IV antibiotics and antivirals to cover meningitis and encephalitis. However, patient's mental status quickly returned to baseline. Cultures were negative. She was seen by infectious disease who felt this was likely viral illness. Antibiotics were discontinued and patient remained afebrile. She was seen by Physical therapy and ambulated well. She will be discharged home. She should continue to monitor for fevers or worsening symptoms and return if occurs. Time Attestation Discharge coordination time: Greater than 30 minutes Quality: Safe Use of Opioids Does Pt have an Active Cancer Diagnosis on the Problem List?: No Quality: Stroke Does the patient have a stroke diagnosis?: No Physical Exam Vital Signs: Vital Signs: Last Vital Signs Temp 96.8 F 05/19/23 07:17 Pulse 80 05/19/23 07:17 Resp 16 05/19/23 07:17 BP 122/58 L 05/19/23 07:17 Pulse Ox 96 05/19/23 07:17 O2 Del Method Room Air 05/19/23 07:17 O2 Flow Rate 1 01/31/24 16:18 BMI result Body Mass Index 30.8 alert oriented to person, place, not time, difficulty with word finding, borderline insight DS: Data Data Completed and Pending Labs on day of discharge: Laboratory Results - last 24 hr 05/19/23 05:52 WBC 12.0 H RBC 3.89 L Hgb 12.6 Hct 36.1 L MCV 92.8 MCH 32.4 MCHC 34.9 RDW 13.2 Plt Count 157 L MPV 10.7 Absolute Nucleated RBC 0.000 Nucleated RBC % (auto) 0.0 Sodium 143 Potassium 3.9 Chloride 114 H Carbon Dioxide 21 L Anion Gap 12 BUN 13 Creatinine 0.87 Estim Creat Clear Calc 76.3 Estimated GFR > 60 Fasting Glucose 123 H Calcium 8.4 Preliminary micro results at discharge 05/18/23 00:06 Blood Culture - Preliminary Blood - Venous No growth after 24 hours. 05/17/23 23:58 Blood Culture - Preliminary Blood - Venous No growth after 24 hours. Discharge Plan Discharge Anticipated Discharge Date/Time: 05/19/23 11:00 Patient Disposition: Home, Self-Care Discharge Diagnosis: sirs, ams Referrals: Soo Landry LAB COURIER [Primary Care Provider] - 1 Week Discharge Medications: Continued multivitamin Tablet 1 tab PO DAILY calcium carbonate-vitamin D3 600 mg-5 mcg (200 unit) Tablet 1 tab PO DAILY betamethasone dipropionate 0.05 % cream 1 appl TOPICAL DAILY rosuvastatin 10 mg tablet 10 mg PO DAILY PreserVision AREDS-2 250-90-40-1 mg Capsule 1 tab PO BID Discharge Orders: Discharge Order (Routine); Ordered 05/19/23 Ordered By: Nikolas Bonilla Diet: Advance to usual diet Activity on Discharge: As tolerated Stand Alone Forms: Patient Portal Discharge page Care Plan Goals: recovery Health Concerns: fever, ams Plan of Treatment: monitor for fevers, return if any worsening symptoms Assessment: see above
== END 2023-05-19 11:27 | disposition home or self-care (01) | DRG 865 ==
LOC: HO.ED 05-18 03:49 → HO.EDOVER 05-18 04:41 → HO.S3 05-18 15:29
PROVIDERS: Admitting Provider Student in an Organized Health Care Education/Training Program; Emergency Provider Emergency Medicine; PCP Registered Nurse; Visit Provider Internal Medicine
DX: B34.9 Viral infection, unspecified (principal); G93.41 Metabolic encephalopathy; E78.2 Mixed hyperlipidemia; Z20.822 Contact with and (suspected) exposure to COVID-19; Z79.899 Other long term (current) drug therapy
CPT/HCPCS: 36415; 70450; 71045; 71260; 74177; 80048; 80076; 81003; 82803; 83605; 83690; 83735; 84145; 84443; 84484; 85025; 85027; 85610; 87040; 87502; 87635; 93005; 93970; 97161; 99285; J0133; J0290; J0696; J1100; J3370; Q9967

== ENCOUNTER → 2023-05-17 23:43 | Outpatient (BNV) | payer OTHER, MEDICARE, SELFPAY | PROVIDERS: Admitting Provider Student in an Organized Health Care Education/Training Program; Emergency Provider Emergency Medicine; PCP Registered Nurse; Visit Provider Internal Medicine Cardiovascular Disease | DX: R94.31 Abnormal electrocardiogram [ECG] [EKG] (principal); R41.82 Altered mental status, unspecified | CPT/HCPCS: 93010 ==

== ENCOUNTER → 2023-05-18 04:14 | Outpatient (BNV) | payer MEDICARE, OTHER, SELFPAY | PROVIDERS: Admitting Provider Student in an Organized Health Care Education/Training Program; Emergency Provider Emergency Medicine; PCP Registered Nurse; Visit Provider Student in an Organized Health Care Education/Training Program | DX: R50.9 Fever, unspecified (principal); G93.41 Metabolic encephalopathy; R41.0 Disorientation, unspecified | CPT/HCPCS: 99222; 99239; 99499 ==

== ENCOUNTER → 2023-05-18 04:14 | Outpatient (BNV) | payer MEDICARE, OTHER, SELFPAY | PROVIDERS: Admitting Provider Student in an Organized Health Care Education/Training Program; Emergency Provider Emergency Medicine; PCP Registered Nurse; Visit Provider Internal Medicine | DX: R50.9 Fever, unspecified (principal); R41.0 Disorientation, unspecified | CPT/HCPCS: 99222 ==

== ENCOUNTER 2024-05-08 08:52 | Inpatient (IN) | payer MEDICARE, OTHER, SELFPAY ==
--- NOTE | ~2024-05-08 | US_ITS ---
EXAMINATION: US ABDOMEN LIMITED HISTORY: Elevated LFTs, R/O hepatobiliary disease. TECHNIQUE: Real-time grayscale ultrasound imaging of the right upper quadrant was performed and images were reviewed. COMPARISON: Correlation is made with a CT of the abdomen with contrast dated 05/18/2023. FINDINGS: Liver: The liver is normal in size, but demonstrates mildly increased echotexture, consistent with steatosis. No focal mass or intrahepatic biliary ductal dilatation is identified. There is normal hepatopedal flow in the portal vein. Gallbladder and biliary tree: There is layering sludge in the gallbladder. The gallbladder is otherwise unremarkable, without evidence of calculi, wall thickening, or pericholecystic fluid. The technologist reports a positive sonographic Vasquez sign. The common bile duct is normal in caliber measuring 6 mm. Right Kidney: The right kidney measures 8.9 cm in length and demonstrates a 1.9 cm parapelvic cyst. The right kidney is otherwise unremarkable, without evidence of solid masses, hydronephrosis, or calculi. Pancreas: The pancreatic head, neck, and body are unremarkable. The pancreatic tail is obscured by bowel gas. Abdominal aorta and inferior vena cava: The visualized portions of the abdominal aorta and inferior vena cava are normal in caliber. There is no free fluid in the right upper quadrant. US/US abdomen limited IMPRESSION: 1. Mild hepatic steatosis. 2. Gallbladder sludge with a positive sonographic Vasquez's sign. Findings are suspicious for acute cholecystitis. Hepatobiliary scan may be helpful. Electronically signed by: Cesar Shannon MD 05/08/2024 12:57 PM [facility]
--- NOTE | ~2024-05-08 | XR_ITS ---
EXAMINATION: XR CHEST CLINICAL INFORMATION: Generalized weakness COMPARISON: CT chest 05/18/2023.. TECHNIQUE: Frontal view of the chest was obtained. FINDINGS: No significant abnormality is noted involving the heart, lungs, mediastinum, bony thorax or soft tissues. XR/XR chest 1V IMPRESSION: Unremarkable chest examination. Electronically signed by: Suraj Handy MD 05/08/2024 09:46 AM [facility]
--- NOTE | ~2024-05-08 | NM_ITS ---
CLINICAL HISTORY: Abnormal ultrasound GB NM HIDA Scan Comparison: None available Technique: Sonographic imaging of the abdomen is performed following 5.0 mCi technetium 99 in foramen. 1.7mcg of CCK was also utilized. Findings: Radiopharmaceutical is filter in the liver and subsequently passes into small intestine demonstrating patency of the CBD. Gallbladder is visualized within 20 minutes of the imaging supporting patency of the cystic duct. Acute cholecystitis is considered unlikely. Moderate enterogastric reflux of radiotracer. Gallbladder ejection fraction 29%. IMPRESSION: 1. No scintigraphic findings of acute cholecystitis. Visualization of the gallbladder supports patency of the cystic duct. 2. Estimated ejection fraction of the gallbladder is 29% at 30 minutes of the imaging post CCK. 3. Moderate enteric gastric reflux. This document has been electronically signed by: Hernan Gonsalves MD on 05/08/2024 21:49:42
[2024-05-08 09:08] VITALS: BP 128/76; BP 148/43; PULSE 94; RESP 18; TEMP 36.6; O2SAT 95; O2SAT 96; BMI 29.3
--- NOTE | 2024-05-08 09:20 | ECG_ITS ---
Test Reason : general weakness Blood Pressure : */* mmHG Vent. Rate : 86 BPM Atrial Rate : 86 BPM P-R Int : 114 ms QRS Dur : 68 ms QT Int : 336 ms P-R-T Axes : -2 20 18 degrees QTcB Int : 402 ms Normal sinus rhythm Normal ECG When compared with ECG of 18-May-2023 00:15, No significant change was found Referred By: Connie Beltran Electronically Signed By: QUEENIE JOHNSON MD
--- NOTE | 2024-05-08 09:22 | ED_ITS ---
HPI - General Adult General Chief complaint: General Medical Stated complaint: WEAK,NAUSEA,?UTI FREQ BURNING URINATION Time Seen by Provider: 05/08/24 08:58 Source: patient, family (Spouse) and EMS Mode of arrival: EMS Limitations: no limitations History of Present Illness ED Provider: DR. Beltran HPI narrative: A 64-year-old female with pertinent history of TBI, cognitive impairment, mixed hyperlipidemia, previous brain surgery, history mostly obtained from her at the bedside patient is s/p left femur fracture about month ago s/p gloria placement in the left femur at [facility] then patient was discharged to rehab where she spent 2 weeks there then patient was discharged home with PT stated that ever since she has been home she is mostly bed ridden and he is having hard time to care for his and would like her to be placed in the rehab. stated that the patient is a full code. Related Data Home Medications ?Medication ?Instructions ?Recorded ?Confirmed calcium 600 mg (as 1 tab PO DAILY 05/18/23 05/08/24 carbonate)-vitamin D3 5 mcg (200 unit) tablet rosuvastatin 10 mg tablet 10 mg PO DAILY 05/18/23 05/08/24 acetaminophen 325 mg tablet 650 mg PO Q6H PRN Pain (Scale 05/08/24 05/08/24 Score 1-3) ammonium lactate 12 % lotion 1 appl topical BID 05/08/24 05/08/24 cholecalciferol (vitamin D3) 25 50 mcg PO DAILY 05/08/24 05/08/24 mcg (1,000 unit) tablet (Vitamin D3) enoxaparin 40 mg/0.4 mL 40 mg subcut Q24H 05/08/24 05/08/24 subcutaneous syringe estradiol 0.01% (0.1 mg/gram) 1 appful vaginal 3XW 05/08/24 vaginal cream (Estrace) gabapentin 100 mg capsule 200 mg PO TID 05/08/24 05/08/24 lidocaine 5 % topical patch 1 patch topical DAILY 05/08/24 05/08/24 oxycodone 5 mg tablet 5 - 10 mg PO Q4H PRN pain 05/08/24 05/08/24 pantoprazole 40 mg tablet,delayed 40 mg PO DAILY@0630 05/08/24 05/08/24 release sennosides 8.6 mg tablet 17.2 mg PO BEDTIME 05/08/24 05/08/24 tizanidine 2 mg tablet 2 mg PO TID 05/08/24 05/08/24 Allergies Allergy/AdvReac Type Severity Reaction Status Date / Time No Known Allergies Allergy Verified 05/08/24 09:11 Review of Systems 2 Review of Systems: All other systems are reviewed and are negative Constitutional: Reports as per HPI and Reports no additional constitutional complaints Eyes: Reports as per HPI and Reports no additional eye complaints Reports system reviewed and no additional complaints, except as documented Cardiovascular: Reports as per HPI and Reports no additional cardiovascular complaints Respiratory: Reports as per HPI and Reports no additional respiratory complaints Gastrointestinal: Reports as per HPI and Reports no additional gastrointestinal complaints Genitourinary: Reports no additional female genitourinary complaints Musculoskeletal: Reports no additional musculoskeletal complaints Skin/Breast: Reports system reviewed and no additional complaints, except as docu Psychiatric: Reports no additional psychiatric complaints Endocrine: Reports no additional endocrine complaints Hematologic/Lymphatic: Reports no additional hematologic/lymphatic complaints Allergic/Immunologic: Reports no additional allergic/immunologic complaints Reports system reviewed and no additional complaints, except as documented and Reports Abnormal speech present [facility] Past Medical History Medical History Hyperlipidemia Cognitive impairment Melanoma Hearing loss TBI (traumatic brain injury) Social History Social History Household Members: Spouse Housing: House Do you presently have visiting nurse or other home services: No Alcohol intake: never Patient Tobacco Use Status: Never used Tobacco Smoked in Last 30 Days: No Use of substances other than those prescribed or required for medical reasons: No Advance Directives: Yes Advance Directives on File: Yes Advance Directives Date on File: 05/08/24 Do you have a plan to hurt others: No Plan service: No Physical Exam ED Vital Signs: Vital Signs - 24 hr 05/08/24 09:08 05/08/24 09:40 05/08/24 11:38 Temperature 97.9 F 98.5 F 98.5 F Pulse Rate 94 86 83 Respiratory Rate 18 18 16 Blood Pressure 148/43 H 131/50 L 122/62 Pulse Oximetry 95 95 95 Oxygen Delivery Method Room Air Room Air Room Air BMI result Body Mass Index 29.3 Vital signs have been reviewed and appear to be correct. Blood pressure elevated. Heart rate normal. Respiratory rate normal. Temperature normal. Oxygen saturation normal. Appearance: Alert. Oriented X3. No acute distress. Head: Normal external exam. Normocephalic. Atraumatic. No Harrison signs noted. No raccoon eyes noted Eyes: PERRLA. EOMI. Conjunctiva and sclera normal. Eyelids normal. ENT: TM's Normal. Pharynx normal. Uvula midline. Moist mucous membranes. No trismus noted. No drooling noted. No muffled voice noted. Neck: Normal inspection. Neck supple. FROM. No adenopathy. Thyroid Normal. No meningeal signs. No neck mass noted. CVS: Normal heart rate and rhythm. Heart sound normal. No murmurs noted. Pulses normal throughout. Respiratory: No respiratory distress. Painless inspiration. Breath sounds normal. No wheezes/rales/rhonchi noted. Chest nontender. No accessory muscle usage noted or decreased air movement noted. Abdomen: Soft and nontender. Bowel sounds normal in all 4 quadrants. No distention noted. No organomegaly noted. No visible injury noted. Back: No CVA tenderness. Full range of motion noted. Skin: Skin warm and dry. Normal skin color. Normal skin turgor. No rashes/lesions/lacerations noted. Extremities: No lower extremity edema. Extremities exhibit normal range of motion. Extremities nontender. Neuro: Oriented X 3. Cranial nerve exam: II-XII are grossly intact No motor deficit. No sensory deficit. Reflexes normal. Course Reevaluation(s) Reevaluation #1: Medically cleared, will keep for physician observation, consult case management for possible placement. Patient is a full code. Time: 11:00 Reevaluation #2: UTI patient was started on oral antibiotic, labs showed normal WBCs but elevated LFTs, ultrasound is showing cholelithiasis with possible acute cholecystitis recommending HIDA scan, the case was discussed with surgery on-call Dr. Ha who recommended to obtain HIDA scan the case was signed out to Dr. Whitfield. Time: 16:00 Medications Administered Generic Name Dose Route Start Last Admin Trade Name Freq PRN Reason Stop Dose Admin Cefuroxime Axetil 500 mg 05/08/24 11:45 05/08/24 11:57 Cefuroxime Axetil 500 Mg Tablet PO 05/15/24 00:00 500 mg BID PEDRITO Administration Discontinued Medications Generic Name Dose Route Start Last Admin Trade Name Juwan PRN Reason Stop Dose Admin Oxycodone HCl 10 mg 05/08/24 12:00 05/08/24 12:31 Oxycodone Hcl Immed Release 5 Mg Tablet PO 05/08/24 12:01 10 mg ONCE ONE Administration Medical Decision Making Differential Diagnosis Differential Diagnoses: The differential diagnosis associated with the presentation includes (UTI, dehydration, electrolyte derangement, severe anemia, failure to thrive) Admission/Observation Consideration of admission/observation: Escalation of care including admission/observation considered Lab Data MDM Lab Attestation statement: I reviewed the patient's lab results. 05/08/24 10:15 05/08/24 10:15 Labs: Lab Results 05/08/24 05/08/24 Range/Units 10:15 11:36 WBC 10.0 (4.8-10.8) X10*3/uL RBC 4.14 L (4.20-5.50) X10*6/uL Hgb 13.6 (12.0-16.0) g/dl Hct 41.3 (37.0-47.0) % MCV 99.8 H (80.0-98.0) fL MCH 32.9 (27.0-33.0) pg MCHC 32.9 (31.0-35.0) g/dl RDW 14.3 (11.0-16.0) % Plt Count 224 D (160-400) X10*3/uL MPV 9.3 L (9.4-12.3) fL Immature Gran % (Auto) 0.3 (0.0-0.4) % Neut % (Auto) 88.6 H (45-73) % Lymph % (Auto) 5.2 L (20-40) % [place] % (Auto) 5.1 (2-11) % Eos % (Auto) 0.2 (0-4) % Baso % (Auto) 0.6 (0-2) % Lymph # (Auto) 0.5 L (1.2-4.9) X10*3/uL [place] # (Auto) 0.5 (0.1-1.2) X10*3/uL Eos # (Auto) 0.0 (0.0-0.4) X10*3/uL Baso # (Auto) 0.1 (0.0-0.2) X10*3/uL Abs Immat Gran (auto) 0.03 (0.00-0.03) X10*3/uL Absolute Neuts (auto) 8.9 H (2.0-8.3) x10*3/uL Absolute Nucleated RBC 0.000 (0.0-0.012) X10*3/uL Nucleated RBC % (auto) 0.0 (0.0-0.2) /100WBC Sodium 141 (135-145) mmol/L Potassium 4.4 (3.3-5.1) mmol/L Chloride 107 (96-108) mmol/L Carbon Dioxide 27 (22-29) mmol/L Anion Gap 11 L (12-20) BUN 16 (9-16) mg/dL Creatinine 1.17 (0.5-1.4) mg/dL Estim Creat Clear Calc 54.7 Estimated GFR 46 Random Glucose 113 (60-115) mg/dL Calcium 9.4 D (8.4-10.2) mg/dL Total Bilirubin 0.6 (0.0-1.0) mg/dL Direct Bilirubin 0.2 (0.0-0.5) mg/dL AST 193 H (5-31) U/L ALT 179 H (0-31) U/L Alkaline Phosphatase 288 H (39-117) U/L Troponin I High Sens < 2.7 (<3.5-17.0) ng/L Total Protein 7.4 (6.5-8.0) g/dL Albumin 4.0 (3.5-5.0) g/dL Lipase 24 (8-78) U/L Urine Color Yellow Urine Appearance Turbid Urine pH 8.0 (5.0-9.0) Ur Specific [place] 1.025 (1.005-1.025) Urine Protein 100 (2+) H (Neg-Trace) mg/dL Urine Glucose (UA) Negative (Negative) mg/dL Urine Ketones Negative (Negative) mg/dL Urine Blood Moderate (2+) H (Negative) Urine Nitrite Positive H (Negative) Ur Leukocyte Esterase Large (3+) H (Negative) Urine RBC 11-20 H (0-2) /HPF Urine WBC >50 H (0-5) /HPF Ur Squamous Epith Cells >20 (0-2) /HPF Urine Bacteria 4+ (None Seen) Hyaline Casts 3-5 (0-2) /LPF Influenza Type A (PCR) NEGATIVE (Negative) Influenza Type B (PCR) NEGATIVE (Negative) RSV RNA Qual (PCR) NEGATIVE (Negative) SARS-CoV-2 RNA (RT-PCR) NEGATIVE (Negative) Independent Interpretation I performed an independent interpretation of an: Plain X-Ray (Chest: Unremarkable chest examination.) and Ultrasound (Gallbladder:1. Mild hepatic steatosis. 2. Gallbladder sludge with a positive sonographic Vasquez's sign. Findings are suspicious for acute cholecystitis. Hepatobiliary scan may be helpful.) Radiology Impression Discussion of test interpretation with radiology: I have reviewed the radiologist's reading. Discharge Plan Discharge Clinical Impression: Difficulty walking, Adult failure to thrive Patient Disposition: Still a Patient Prescriptions: No Action calcium carbonate-vitamin D3 600 mg-5 mcg (200 unit) Tablet 1 tab PO DAILY rosuvastatin 10 mg tablet 10 mg PO DAILY sennosides 8.6 mg Tablet 17.2 mg PO BEDTIME acetaminophen 325 mg Tablet 650 mg PO Q6H PRN (Reason: Pain (Scale Score 1-3)) tizanidine 2 mg Tablet 2 mg PO TID ammonium lactate 12 % Lotion 1 appl TOPICAL BID pantoprazole 40 mg Tablet,Delayed Release (Dr/Ec) 40 mg PO DAILY@0630 lidocaine 5 % Adhesive Patch,Medicated 1 patch TOPICAL DAILY Rx Instructions: leave on most painful area for up to 12 hrs gabapentin 100 mg Capsule 200 mg PO TID estradiol [Estrace] 0.01 % (0.1 mg/gram) Cream 1 appful VAGINAL 3XW Rx Instructions: for 14 days oxycodone 5 mg tablet 5 - 10 mg PO Q4H PRN (Reason: pain) enoxaparin 40 mg/0.4 mL Syringe 40 mg SUBCUT Q24H Rx Instructions: x 14 days cholecalciferol (vitamin D3) [Vitamin D3] 25 mcg (1,000 unit) Tablet 50 mcg PO DAILY Referrals: Janneth Solorio [Outside] Print Language: Amharic
[2024-05-08 09:40] VITALS: BP 131/50; PULSE 86; RESP 18; TEMP 36.9; O2SAT 95
[2024-05-08 10:24] LABS: MANUAL DIFF FLAG NO
[2024-05-08 10:26] LABS: Basophils Absolute Auto 0.1 X10*3/uL (0.0-0.2); Basophils Percent Auto 0.6 % (0-2); Eosinophils Percent Auto 0.2 % (0-4); Hematocrit 41.3 % (37.0-47.0); Hemoglobin 13.6 g/dl (12.0-16.0); Imm Gran Abs Auto 0.03 X10*3/uL (0.00-0.03); Imm Gran Pct Auto 0.3 % (0.0-0.4); Lymphocytes Absolute Auto 0.5 X10*3/uL (1.2-4.9); Lymphocytes Percent Auto 5.2 % (20-40); Mean Corpuscular HGB Conc 32.9 g/dl (31.0-35.0); Mean Corpuscular Hemoglobin 32.9 pg (27.0-33.0); Mean Corpuscular Volume 99.8 fL (80.0-98.0); Mean Platelet Volume 9.3 fL (9.4-12.3); Monocytes Absolute Auto 0.5 X10*3/uL (0.1-1.2); Monocytes Percent Auto 5.1 % (2-11); Neutrophils Absolute Auto 8.9 x10*3/uL (2.0-8.3); Neutrophils Percent Auto 88.6 % (45-73); Platelet Count 224 X10*3/uL (160-400); Red Blood Count 4.14 X10*6/uL (4.20-5.50); Red Cell Distribution Width 14.3 % (11.0-16.0)
[2024-05-08 10:55] LABS: Alanine Aminotransferase 179 U/L (0-31); Alkaline Phosphatase 288 U/L (39-117); Anion Gap 11 (12-20); Aspartate Amino Transferase 193 U/L (5-31); Bilirubin Direct 0.2 mg/dL (0.0-0.5); Bilirubin Total 0.6 mg/dL (0.0-1.0); Blood Urea Nitrogen 16 mg/dL (9-16); Calcium 9.4 mg/dL (8.4-10.2); Carbon Dioxide 27 mmol/L (22-29); Chloride 107 mmol/L (96-108); Creatinine Clr Calc Pharmacy 54.7; Estimated Glomerular Filt Rate 46; Glucose Random 113 mg/dL (60-115); Lipase 24 U/L (8-78); Potassium 4.4 mmol/L (3.3-5.1); Sodium 141 mmol/L (135-145); Total Protein 7.4 g/dL (6.5-8.0)
[2024-05-08 11:02] LABS: Influenza A PCR NEGATIVE (Negative); Influenza B PCR NEGATIVE (Negative); Resp Syncy Virus RNA Qual PCR NEGATIVE (Negative); SARS COV2 PCR INHOUSE NEGATIVE (Negative)
[2024-05-08 11:03] LABS: Troponin-I High Sensitivity < 2.7 ng/L (<3.5-17.0)
--- NOTE | 2024-05-08 11:34 | PC.NURSE ---
pt was straight cath'd for urine
[2024-05-08 11:38] VITALS: BP 122/62; PULSE 83; RESP 16; TEMP 36.9; O2SAT 95
[2024-05-08 11:48] LABS: Appearance Urine Turbid; Color Urine Yellow; Glucose Urine UA Negative (Negative); Leukocyte Esterase Urine Large (3+) (Negative); Nitrite Urine Positive (Negative); Specific Gravity - Urine 1.025 (1.005-1.025); UMIC TRIGGER UACC YES; Urine Blood Moderate (2+) (Negative); Urine Ketones Negative (Negative); Urine Protein 100 (2+) mg/dL (Neg-Trace)
[2024-05-08] MEDS: cefuroxime axetiL 500 MG TABLET PO ×2 (11:57→21:36)
[2024-05-08 12:01] LABS: Bacteria Urine 4+ (None Seen); Squamous Epithelial Cell Urine >20 /HPF (0-2); UACC Culture Trigger YES; WBC Urine >50 /HPF (0-5)
[2024-05-08] MEDS: oxyCODONE HCl Immed Release 5 MG TABLET 10 MG PO (12:31)
--- NOTE | 2024-05-08 12:33 | PC.NURSE ---
pt medicated for pain 9/10 to left leg,
--- NOTE | 2024-05-08 13:16 | PC.NURSE ---
pt on pure wick as she normally wears a brief at home, pt rang stating she is wet and wants to be changed, states that she is wet as well. This nurse and tech- ebony obtained linens to do a full bed change, pt became beligerant while we attempted to do the bed change- pts linens were dry and the pure wick was intact/patient/draining- this was told to the and patient- both requested to have the pads under the patient changed despite them being dry. Pads were changed per their request.
--- NOTE | 2024-05-08 15:30 | PC.NURSE ---
pts med req from [facility] has been sent to pharmacy to review
--- NOTE | 2024-05-08 15:49 | MHC.CM.ED ---
Received case management consult from Dr Beltran. Patient came to the ER due to weakness. Patient was at [facility] fro 04/07-04/13. Patient was d/c'd to [facility]. Patient was d/c'd home from [facility] on 05/03. Physical therapy eval completed. Rehab is recommended. Referral made to [facility]. [facility] is not able to offer a bed. Referral sent to all SNF within 15 miles of patient's home to see what bed offers were available. Met with patient and , Damion. Bed options discussed. Choices: 1)[facility] 2) [facility]. Patient and Damion accept bed at [facility]. Patient can leave tomorrow 05/09 at 1030am. [facility] booked. [facility] with chart. Patient, Margot Bruno RN and Dr Beltran aware. When patient was d/c'd from [facility], Dilaudid 4mg PO every 4 hours as needed for pain was ordered. Dilaudid was on back order at [facility]. It was changed to oxycodone 5-10mg. Damion states patient received better pain control from Dilaudid. Continue to monitor for d/c needs.
[2024-05-08 16:00] VITALS: BP 115/39; PULSE 79; RESP 18; O2SAT 94
--- NOTE | 2024-05-08 16:50 | PHA.MEDREC ---
Pharmacy Consult ? Medication Reconciliation Pharmacy has completed the medication reconciliation using list from [facility] ([facility]).
--- NOTE | 2024-05-08 16:53 | P.CONGS_ITS ---
History of Present Illness Consult details Consult date: 05/08/24 Reason for consult: abdominal pain Narrative: A 64-year-old female with pertinent history of TBI, cognitive impairment, mixed hyperlipidemia, previous brain surgery, s/p left femur fracture about month ago s/p gloria placement in the left femur at [facility] then patient was discharged to rehab where she spent 2 weeks there then patient was discharged home with PT stated that ever since she has been home she is mostly bed ridden and he is having hard time to care for his and would like her to be placed in the rehab. stated that the patient is a full code. He brought her in also today because she has been having nausea and vomiting abdominal pain and complaining of pain in her back. She says that the pain starts in the right upper quadrant area and radiates to the back. She denies any urinary symptoms but her urinalysis has blood and white blood cells. She is unaware that she has had gallbladder stones in the past although the ultrasound today shows sludge. Workup also revealed significantly elevated LFTs but her bilirubin was normal. She is feeling better here in the emergency room. She has been having normal bowel movements. Review of Systems 2 Review of Systems: Yes all other systems are reviewed and are negative PMFSH Past Medical History Medical History Hyperlipidemia Cognitive impairment Melanoma Hearing loss TBI (traumatic brain injury) Social History Social History Household Members: Spouse Housing: House Do you presently have visiting nurse or other home services: No Alcohol intake: never Patient Tobacco Use Status: Never used Tobacco Smoked in Last 30 Days: No Use of substances other than those prescribed or required for medical reasons: No Advance Directives: Yes Advance Directives on File: Yes Advance Directives Date on File: 05/08/24 Do you have a plan to hurt others: No Plan service: No Meds Allergies Allergy/AdvReac Type Severity Reaction Status Date / Time No Known Allergies Allergy Verified 05/08/24 09:11 Active Medications: Current Medications Cefuroxime Axetil (Cefuroxime Axetil 500 Mg Tablet) 500 mg PO BID PEDRITO Stop: 05/15/24 00:00 Last Admin: 05/08/24 11:57 Dose: 500 mg Home Medications ?Medication ?Instructions ?Recorded ?Confirmed ?Last Taken ?Type calcium 600 mg (as 1 tab PO TID 05/18/23 05/08/24 Unknown History carbonate)-vitamin D3 5 mcg (200 unit) tablet rosuvastatin 10 mg tablet 10 mg PO DAILY 05/18/23 05/08/24 Unknown History acetaminophen 325 mg tablet 650 mg PO Q6H PRN Pain (Scale 05/08/24 05/08/24 Unknown History Score 1-3) ammonium lactate 12 % lotion 1 appl topical BID 05/08/24 05/08/24 Unknown History cholecalciferol (vitamin D3) 25 50 mcg PO DAILY 05/08/24 05/08/24 Unknown History mcg (1,000 unit) tablet (Vitamin D3) enoxaparin 40 mg/0.4 mL 40 mg subcut Q24H 05/08/24 05/08/24 Unknown History subcutaneous syringe estradiol 0.01% (0.1 mg/gram) 1 appful vaginal 3XW 05/08/24 Unknown History vaginal cream (Estrace) gabapentin 100 mg capsule 200 mg PO TID 05/08/24 05/08/24 Unknown History lidocaine 5 % topical patch 1 patch topical DAILY 05/08/24 05/08/24 Unknown History oxycodone 5 mg tablet 5 - 10 mg PO Q4H PRN pain 05/08/24 05/08/24 Unknown History pantoprazole 40 mg tablet,delayed 40 mg PO DAILY@0630 05/08/24 05/08/24 Unknown History release sennosides 8.6 mg tablet 17.2 mg PO BEDTIME 05/08/24 05/08/24 Unknown History tizanidine 2 mg tablet 2 mg PO TID 05/08/24 05/08/24 Unknown History Physical Exam 2 Vital Signs: Vital Signs: Last Vital Signs Temp 98.5 F 05/08/24 11:38 Pulse 79 05/08/24 16:00 Resp 18 05/08/24 16:00 BP 115/39 L 05/08/24 16:00 Pulse Ox 94 05/08/24 16:00 O2 Del Method Room Air 05/08/24 16:00 BMI result Body Mass Index 29.3 Const: General: cooperative, comfortable and no acute distress O rientation/consciousness: oriented to person HEENT: Other: Nonicteric GI: Other: abdomen is soft nondistended tender to deep palpation in the right upper quadrant that is a mild guarding no rebound no peritoneal signs no masses noted Neuro: General: oriented to person Cranial nerves: Yes CN's II-XII intact bilaterally Extrem: Other: incisions on left lateral leg from surgery look well healed Psych: Appearance: grossly normal Mental Status: mental status grossly normal Results Labs 05/08/24 10:15 05/08/24 10:15 Labs: Abnormal lab results 05/08/24 05/08/24 Range/Units 10:15 11:36 RBC 4.14 L (4.20-5.50) X10*6/uL MCV 99.8 H (80.0-98.0) fL MPV 9.3 L (9.4-12.3) fL Neut % (Auto) 88.6 H (45-73) % Lymph % (Auto) 5.2 L (20-40) % Lymph # (Auto) 0.5 L (1.2-4.9) X10*3/uL Absolute Neuts (auto) 8.9 H (2.0-8.3) x10*3/uL Anion Gap 11 L (12-20) AST 193 H (5-31) U/L ALT 179 H (0-31) U/L Alkaline Phosphatase 288 H (39-117) U/L Urine Protein 100 (2+) H (Neg-Trace) mg/dL Urine Blood Moderate (2+) H (Negative) Urine Nitrite Positive H (Negative) Ur Leukocyte Esterase Large (3+) H (Negative) Urine RBC 11-20 H (0-2) /HPF Urine WBC >50 H (0-5) /HPF Short CBC 05/08/24 Range/Units 10:15 WBC 10.0 (4.8-10.8) X10*3/uL Hgb 13.6 (12.0-16.0) g/dl Hct 41.3 (37.0-47.0) % Plt Count 224 D (160-400) X10*3/uL BMP 05/08/24 10:15 Sodium 141 Potassium 4.4 Chloride 107 Carbon Dioxide 27 BUN 16 Creatinine 1.17 Calcium 9.4 D Liver Function 05/08/24 Range/Units 10:15 Total Bilirubin 0.6 (0.0-1.0) mg/dL Direct Bilirubin 0.2 (0.0-0.5) mg/dL AST 193 H (5-31) U/L ALT 179 H (0-31) U/L Alkaline Phosphatase 288 H (39-117) U/L Albumin 4.0 (3.5-5.0) g/dL Urine 05/08/24 Range/Units 11:36 Urine Color Yellow Urine Appearance Turbid Urine pH 8.0 (5.0-9.0) Ur Specific [place] 1.025 (1.005-1.025) Urine Protein 100 (2+) H (Neg-Trace) mg/dL Urine Glucose (UA) Negative (Negative) mg/dL All other labs normal. Imaging Additional studies: Chart - [employer] [facility] Reports Attending Dr: Ordering Physician: Connie Beltran MD Date of Service: 05/08/24 Procedure(s): NM hepatobiliary w pharm Accession Number(s): [id number] cc: Wilmer Evans MD; Connie Beltran MD~ CLINICAL HISTORY: Abnormal ultrasound GB NM HIDA Scan Comparison: None available Technique: Sonographic imaging of the abdomen is performed following 5.0 mCi technetium 99 in foramen. 1.7mcg of CCK was also utilized. Findings: Radiopharmaceutical is filter in the liver and subsequently passes into small intestine demonstrating patency of the CBD. Gallbladder is visualized within 20 minutes of the imaging supporting patency of the cystic duct. Acute cholecystitis is considered unlikely. Moderate enterogastric reflux of radiotracer. Gallbladder ejection fraction 29%. IMPRESSION: 1. No scintigraphic findings of acute cholecystitis. Visualization of the gallbladder supports patency of the cystic duct. 2. Estimated ejection fraction of the gallbladder is 29% at 30 minutes of the imaging post CCK. 3. Moderate enteric gastric reflux. This document has been electronically signed by: Hernan Gonsalves MD on 05/08/2024 21:49:42 Dictated By: Hernan Gonsalves MD Signed By: <Electronically signed by Hernan Gonsalves MD in [place]> 05/08/[address] [address] Ultrasound Report Signed Patient: Cristine Ramos MR#: [id number] : 1960 Acct:[id number] Age/Sex: 64 / F ADM Date: 05/08/24 Loc: HO.ED Attending Dr: Ordering Physician: Connie Beltran MD Date of Service: 05/08/24 Procedure(s): US abdomen limited Accession Number(s): [id number] cc: Wilmer Evans MD; Connie Beltran MD~ EXAMINATION: US ABDOMEN LIMITED HISTORY: Elevated LFTs, R/O hepatobiliary disease. TECHNIQUE: Real-time grayscale ultrasound imaging of the right upper quadrant was performed and images were reviewed. COMPARISON: Correlation is made with a CT of the abdomen with contrast dated 05/18/2023. FINDINGS: Liver: The liver is normal in size, but demonstrates mildly increased echotexture, consistent with steatosis. No focal mass or intrahepatic biliary ductal dilatation is identified. There is normal hepatopedal flow in the portal vein. Gallbladder and biliary tree: There is layering sludge in the gallbladder. The gallbladder is otherwise unremarkable, without evidence of calculi, wall thickening, or pericholecystic fluid. The technologist reports a positive sonographic Vasquez sign. The common bile duct is normal in caliber measuring 6 mm. Right Kidney: The right kidney measures 8.9 cm in length and demonstrates a 1.9 cm parapelvic cyst. The right kidney is otherwise unremarkable, without evidence of solid masses, hydronephrosis, or calculi. Pancreas: The pancreatic head, neck, and body are unremarkable. The pancreatic tail is obscured by bowel gas. Abdominal aorta and inferior vena cava: The visualized portions of the abdominal aorta and inferior vena cava are normal in caliber. There is no free fluid in the right upper quadrant. US/US abdomen limited IMPRESSION: 1. Mild hepatic steatosis. 2. Gallbladder sludge with a positive sonographic Vasquez's sign. Findings are suspicious for acute cholecystitis. Hepatobiliary scan may be helpful. Electronically signed by: Cesar Shannon MD 05/08/2024 12:57 PM [facility] Dictated By: Cesar Shannon MD Signed By: <Electronically signed by Cesar Shannon MD in [place]> 05/08/24 1257 DD/ 1215 TD/TT: 05/08/24 1228 Clearance Center Manager: DD/ 48 TD/TT: 05/08/242148 Clearance Center Manager: Assessment and Plan (1) Elevated LFTs: Status: Acute Plan 64-year-old female with multiple medical issues most recently status post left femur surgery and failure to thrive and now elevated LFTs and some abdominal pain. She also has active UTI. I think it would be fair to admit and treat with antibiotics for her UTI and if she does have some degree of biliary cholecystitis than that maybe helpful as well. Her HIDA scan however does not reveal this to be an issue. Her ejection fraction is a little on the lower side but I think surgical intervention would have high-risk and lower benefit in this patient especially at this moment. We can follow along and evaluate start on clear liquid diet and slowly advanced. GI consult potentially to evaluate for other causes of these elevated LFTs. Procedures Date of Service Date of Service: 05/08/24
[2024-05-08] MEDS: ondansetron HCL 4 MG/2 ML VIAL IVPUSH (18:33)
[2024-05-08] MEDS: Morphine Sulfate 4 MG/ML CARTRIDGE IVPUSH ×2 (18:33→21:36)
[2024-05-08] MEDS: cefTRIAXone sodium 1 GM VIAL IVPUSH (18:39)
--- NOTE | 2024-05-08 18:45 | PC.NURSE ---
patient medicated for 910 pain
--- NOTE | 2024-05-08 19:59 | PC.NURSE ---
pt in HIDA scan currently, in room awaiting her return
[2024-05-08 20:58] VITALS: PULSE 85; RESP 19; O2SAT 96
[2024-05-08 21:30] VITALS: BP 138/50
--- NOTE | 2024-05-08 21:45 | PC.NURSE ---
Report received and care assumed at 2100. Pt and spouse found to be in room, conversing freely. Pt is awake, alert, oriented, without distress noted. The pt endorses 10/10 left hip/leg and back pain for which she was medicated per the MAR for... pt also received a dose of PO antibiotics for a UTI. Her and her spouse at bedside are questioning plan; dc to [facility] tomorrow vs admission. Pt tolerated HIDA scan well despite positioning needs. Both parties are inquiring about a hospital bed and/or additional accommodations for bedding as the pt reports discomfort s/t current bed. Pt vitals are stable at this time, she offers no other complaints. Spouse inquiring about the pt receiving IV fluids as she keeps putting out but is getting nothing in ; RN to discuss this question with .
[2024-05-09] VITALS: BP 125/46; PULSE 83; RESP 18; TEMP 37.1; O2SAT 94
--- NOTE | 2024-05-09 00:36 | MHC.EDTECH ---
This tech tok over care of pt at 2300,rounded and introduced self to pt,vitals taken,patient has a pure wick in place,draining at this time,pt will be placed in hospital bed for comfort
--- NOTE | 2024-05-09 00:54 | MHC.EDTECH ---
Patient placed in hospital bed,bed alarm on for safety,call son in reach
[2024-05-09] MEDS: TiZANidine HCL 4 MG TABLET 2 MG PO ×4 (01:50→20:43)
[2024-05-09] MEDS: Enoxaparin Sodium 40 MG/0.4 ML SYRINGE SUBCUT ×2 (01:50→23:11)
[2024-05-09 04:00] VITALS: RESP 16
--- NOTE | 2024-05-09 06:19 | MHC.EDTECH ---
Rounds completed,emptied 700MLS of urine from canister,pt is sleeping,call son in reach
[2024-05-09] MEDS: Omeprazole 20 MG CAPSULE.DR PO (06:53)
--- NOTE | 2024-05-09 08:18 | P.HPGS_ITS ---
History of Present Illness History of Present Illness Date of Service: 05/09/24 Chief complaint: WEAK,NAUSEA,?UTI FREQ BURNING URINATION Narrative: Cristine Ramos is a 64 year old female with a history of traumatic brain injury, who is status post recent hip/femur surgery, who was convalescing at an extended care facility who presents here with right upper quadrant abdominal pain. Patient was a poor historian secondary to her cognitive deficit. 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 Workup in ER demonstrated sonogram findings consistent with acute cholecystitis. Patient had a HIDA scan which was initially read as negative but on re- evaluation this morning was read as positive for acute cholecystitis. Chart was reviewed and patient evaluated. Patient was a modest leukocytosis. LFTs demonstrated normal bilirubin and mild elevation of the remaining enzymes. [facility] Past Medical History Medical History Hyperlipidemia Cognitive impairment Melanoma Hearing loss TBI (traumatic brain injury) Social History Social History Household Members: Spouse Housing: House Do you presently have visiting nurse or other home services: No Alcohol intake: never Patient Tobacco Use Status: Never used Tobacco Smoked in Last 30 Days: No Use of substances other than those prescribed or required for medical reasons: No Advance Directives: Yes Advance Directives on File: Yes Advance Directives Date on File: 05/08/24 Do you have a plan to hurt others: No Plan service: No Meds Allergies Allergy/AdvReac Type Severity Reaction Status Date / Time No Known Allergies Allergy Verified 05/08/24 09:11 Active Medications: Current Medications Acetaminophen (Acetaminophen 325 Mg Tablet) 650 mg PO Q6H PRN PRN Reason: Pain (Scale Score 1-3) Atorvastatin Calcium (Atorvastatin Calcium 40 Mg Tablet) 40 mg PO DAILY [facility] Calcium Carbonate/Cholecalciferol (Calcium + Vitamin D 250 Mg Tablet) 500 mg PO TID [facility] Cefuroxime Axetil (Cefuroxime Axetil 500 Mg Tablet) 500 mg PO BID [facility] Stop: 05/15/24 00:00 Last Admin: 05/08/24 21:36 Dose: 500 mg Enoxaparin Sodium (Enoxaparin Sodium 40 Mg/0.4 Ml Syringe) 40 mg SUBCUT Q24H [facility] Last Admin: 05/09/24 01:50 Dose: 40 mg Gabapentin (Gabapentin 100 Mg Capsule) 200 mg PO TID [facility] Lidocaine (Lidocaine 4 % Patch Adh..Patch) 1 patch TRANSDERMA DAILY [facility] Omeprazole (Omeprazole 20 Mg Capsule.Dr) 20 mg PO DAILY@0630 [facility] Last Admin: 05/09/24 06:53 Dose: 20 mg Oxycodone HCl (Oxycodone Hcl Immed Release 5 Mg Tablet) 10 mg PO Q4H PRN PRN Reason: Pain, Moderate(Pain Scale 4-6) Senna (Sennosides 8.6 Mg Tablet) 17.2 mg PO BEDTIME [facility] Tizanidine HCl (Tizanidine Hcl 4 Mg Tablet) 2 mg PO TID [facility] Last Admin: 05/09/24 01:50 Dose: 2 mg Vitamin D (Cholecalciferol (Vitamin D3) 25 Mcg Tablet) 50 mcg PO DAILY [facility] Home Medications ?Medication ?Instructions ?Recorded ?Confirmed ?Last Taken ?Type calcium 600 mg (as 1 tab PO TID 05/18/23 05/08/24 Unknown History carbonate)-vitamin D3 5 mcg (200 unit) tablet rosuvastatin 10 mg tablet 10 mg PO DAILY 05/18/23 05/08/24 Unknown History acetaminophen 325 mg tablet 650 mg PO Q6H PRN Pain (Scale 05/08/24 05/08/24 Unknown History Score 1-3) ammonium lactate 12 % lotion 1 appl topical BID 05/08/24 05/08/24 Unknown His tory cholecalciferol (vitamin D3) 25 50 mcg PO DAILY 05/08/24 05/08/24 Unknown History mcg (1,000 unit) tablet (Vitamin D3) enoxaparin 40 mg/0.4 mL 40 mg subcut Q24H 05/08/24 05/08/24 Unknown History subcutaneous syringe estradiol 0.01% (0.1 mg/gram) 1 appful vaginal 3XW 05/08/24 Unknown History vaginal cream (Estrace) gabapentin 100 mg capsule 200 mg PO TID 05/08/24 05/08/24 Unknown History lidocaine 5 % topical patch 1 patch topical DAILY 05/08/24 05/08/24 Unknown History oxycodone 5 mg tablet 5 - 10 mg PO Q4H PRN pain 05/08/24 05/08/24 Unknown History pantoprazole 40 mg tablet,delayed 40 mg PO DAILY@0630 05/08/24 05/08/24 Unknown History release sennosides 8.6 mg tablet 17.2 mg PO BEDTIME 05/08/24 05/08/24 Unknown History tizanidine 2 mg tablet 2 mg PO TID 05/08/24 05/08/24 Unknown History Physical Exam Vital Signs: Vital Signs: Last Vital Signs Temp 98.7 F 05/09/24 00:00 Pulse 83 05/09/24 00:00 Resp 16 05/09/24 04:00 BP 125/46 L 05/09/24 00:00 Pulse Ox 94 05/09/24 00:00 O2 Del Method Room Air 05/09/24 00:00 BMI result Body Mass Index 29.3 Const: Other: Patient is somewhat confused in a very poor historian. Chest: Other: Chest sounds bilaterally, HS 1 in 2 GI: Other: Abdomen corpulent. Marked right upper quadrant tenderness and a positive Vasquez's sign. Remaining abdominal exam benign Results Results Labs: Short CBC 05/08/24 Range/Units 10:15 WBC 10.0 (4.8-10.8) X10*3/uL Hgb 13.6 (12.0-16.0) g/dl Hct 41.3 (37.0-47.0) % Plt Count 224 D (160-400) X10*3/uL BMP 05/08/24 10:15 Sodium 141 Potassium 4.4 Chloride 107 Carbon Dioxide 27 BUN 16 Creatinine 1.17 Calcium 9.4 D Liver Function 05/08/24 Range/Units 10:15 Total Bilirubin 0.6 (0.0-1.0) mg/dL Direct Bilirubin 0.2 (0.0-0.5) mg/dL AST 193 H (5-31) U/L ALT 179 H (0-31) U/L Alkaline Phosphatase 288 H (39-117) U/L Albumin 4.0 (3.5-5.0) g/dL Urine 05/08/24 Range/Units 11:36 Urine Color Yellow Urine Appearance Turbid Urine pH 8.0 (5.0-9.0) Ur Specific [place] 1.025 (1.005-1.025) Urine Protein 100 (2+) H (Neg-Trace) mg/dL Urine Glucose (UA) Negative (Negative) mg/dL Assessment and Plan (1) Acute cholecystitis: Status: Acute Plan I spoke by phone with the patient's , who is her conservative or the risks, benefits, alternatives of laparoscopic possible open cholecystectomy which included but not limited to bleeding, infection, numbness, pain, scarring, duct or bowel injury or leak and he wishes to proceed. He is going to be in the ER to see his shortly and I will bring the consent form down for him to sign as well. All questions answered. Patient will be made an add on case for today Quality Stroke Does the patient have a stroke diagnosis?: No VTE Prior VTE?: No VTE Risk Level:: Surgical - low VTE Device Contraindication: N/A - Device Ordered VTE Drug Contraindication: Treatment Not Indicated Procedures Date of Service Date of Service: 05/09/24
--- NOTE | 2024-05-09 08:40 | MHC.CM.ED ---
Patient remains in ER. Patient was scheduled to transfer to [facility] today at 1030am. Received notification patient will be admitted to the hospital d/t acute ramy. [facility] aware d/c is on hold. Transportation with [facility] cancelled. Dr Beltran will speak to patient's . Continue to monitor for d/c needs.
[2024-05-09] MEDS: Lidocaine 4 % Patch ADH..PATCH 1 PATCH TRANSDERMA ×2 (09:45→16:22)
[2024-05-09] MEDS: Gabapentin 100 MG CAPSULE 200 MG PO ×3 (09:49→20:46)
[2024-05-09] MEDS: Calcium + Vitamin D 250 MG TABLET 500 MG PO ×3 (09:49→20:44)
[2024-05-09] MEDS: cefuroxime axetiL 500 MG TABLET PO (09:49)
[2024-05-09] MEDS: Atorvastatin Calcium 40 MG TABLET PO (09:50)
[2024-05-09] MEDS: Cholecalciferol (Vitamin D3) 25 MCG TABLET 50 MCG PO (09:50)
[2024-05-09] MEDS: oxyCODONE HCl Immed Release 5 MG TABLET 10 MG PO (09:52)
--- NOTE | 2024-05-09 09:56 | PC.NURSE ---
per Dr. Julian brandon to give schedule am med with small sip of water
[2024-05-09 10:00] VITALS: BP 124/47; PULSE 75; RESP 18; TEMP 36.4; O2SAT 95
--- NOTE | 2024-05-09 10:00 | MHC.EDTECH ---
Patient was incontinent. I washed and changed patient. put a new purewick on patient nurse aware.
[2024-05-09] MEDS: Lactated Ringers 1,000 ML 100 ML IVCONT ×2 (11:12→20:49)
[2024-05-09 12:44] VITALS: BP 108/48; PULSE 63; RESP 16; TEMP 36.6; O2SAT 93
[2024-05-09] MEDS: cefTRIAXone sodium 2 GM VIAL IVPUSH ×2 (12:49→23:11)
--- NOTE | 2024-05-09 16:25 | MHC.EDTECH ---
patient said she was incontinent patient also has a pure wick no incontinency washed and changed patient put new pure wick on patient
--- NOTE | 2024-05-09 18:29 | PC.NURSE ---
Patient denie pain or discomfort. Per patient request 22g iv placed in right hand to infuse fluids through. at bedside
[2024-05-09 20:13] VITALS: BP 120/48; PULSE 60; RESP 16; TEMP 36.6; O2SAT 97
[2024-05-09] MEDS: Sennosides 8.6 MG TABLET 17.2 MG PO (20:46)
--- NOTE | 2024-05-09 22:00 | PC.NURSE ---
This newswriter assumed care of this Pt at 1900. Pt A&Ox3, reports 8/ left hip pain, declined pain meds at this time. Pt medicated per JUN. Pt updated plan of care.
[2024-05-09 23:22] VITALS: BP 112/53; PULSE 59; RESP 16; TEMP 36.6; O2SAT 98
[2024-05-10] VITALS (12 sets, daily range): BP systolic 119–180; BP diastolic 50–77; PULSE 59–88; RESP 14–18; TEMP 36.4–36.8; O2SAT 92–99; BMI 29.3
[2024-05-10] MEDS: Omeprazole 20 MG CAPSULE.DR PO (06:57)
[2024-05-10] MEDS: Lactated Ringers 1,000 ML 100 ML IVCONT ×2 (06:59→15:22)
[2024-05-10] MEDS: Gabapentin 100 MG CAPSULE 200 MG PO ×3 (09:37→20:01)
[2024-05-10] MEDS: Calcium + Vitamin D 250 MG TABLET 500 MG PO ×3 (09:37→20:01)
[2024-05-10] MEDS: Atorvastatin Calcium 40 MG TABLET PO (09:38)
[2024-05-10] MEDS: TiZANidine HCL 4 MG TABLET 2 MG PO ×3 (09:39→20:01)
[2024-05-10] MEDS: Cholecalciferol (Vitamin D3) 25 MCG TABLET 50 MCG PO (09:41)
[2024-05-10] MEDS: Lidocaine 4 % Patch ADH..PATCH 1 PATCH TRANSDERMA (09:43)
[2024-05-10] MEDS: oxyCODONE HCl Immed Release 5 MG TABLET 10 MG PO ×2 (09:45→23:04)
--- NOTE | 2024-05-10 09:51 | PC.NURSE ---
Report given to short stay surgery
--- NOTE | 2024-05-10 13:10 | MHC.SHP ---
Pre-Procedural Eval Section A - 24 Hr Update-Section A only Date of Service: 05/10/24 The patient is an INPATIENT: Yes Changes since office visit: No Cold of Flu in the past 2 weeks, No New Medical Problems, No Changes in Medication and No Patient answered all questions Section B - Complete if H&P > 30 days Chief Complaint: Acute cholecystitis Details of Present Illness: For laparoscopic possible open cholecystectomy Allergies: Allergies Allergy/AdvReac Type Severity Reaction Status Date / Time No Known Allergies Allergy Verified 05/08/24 09:11 Review of Systems Sugical H&P ROS: Negative: Constitution, Cardiovascular, Respiratory, Neurological, Psychiatric, Hem-Onc, Allergic/Immunologic, Gastrointestinal, Genitourinary, Musculoskeletal, Integumentary, Endocrine and Eyes/Ears/Nose/Throat Exam Surgical H&P Exam: Normal: HEENT, Normal: Heart, Normal: Lungs, Normal: Extremities, Normal: Abdomen, Normal: Skin and Normal: Neurological Plan I have reviewed the history and physical and performed a pertinent physical examination on my patient. No changes have occurred unless specified. Time Spent With Patient Time: Total time managing care of this patient today ____ minutes.
[2024-05-10] MEDS: cefTRIAXone sodium 2 GM VIAL IVPUSH ×2 (13:35→22:58)
--- NOTE | 2024-05-10 13:49 | P.CONAN_ITS ---
HPI - Anesthesia Eval Consult details Narrative: 64 yo F admitted with cholecystitis and UTI. Hx of TBI. (Derrek Ramos) is HCP. [facility] Active Problems Active Problems: All Active Problems Acute cholecystitis (Acute) Elevated LFTs (Acute) Adult failure to thrive (Acute) Difficulty walking (Acute) Past Medical History Medical History Hyperlipidemia Cognitive impairment Melanoma Hearing loss TBI (traumatic brain injury) Family History Family history of problems with anesthesia: No Surgical History History of Problems with Anesthesia: No Social History Social History Household Members: Spouse Housing: House Are you a primary career center advisor to a significant other at home: No Do you presently have visiting nurse or other home services: No Alcohol intake: never Patient Tobacco Use Status: Never used Tobacco Smoked in Last 30 Days: No Use of substances other than those prescribed or required for medical reasons: No Have you been hit, kicked, punched, or otherwise hurt by someone within the past year? If so, by whom?: No Advance Directives: Yes Advance Directives on File: Yes Advance Directives Date on File: 05/08/24 Do you have a plan to hurt others: No Plan Recently lost weight without trying: No Nutrition Risks: No Nutritional Risk Patient : No service: No Meds Allergies Allergy/AdvReac Type Severity Reaction Status Date / Time No Known Allergies Allergy Verified 05/08/24 09:11 Active Medications: Current Medications Acetaminophen (Acetaminophen 325 Mg Tablet) 650 mg PO Q6H PRN PRN Reason: Pain (Scale Score 1-3) Acetaminophen (Acetaminophen 325 Mg Tablet) 650 mg PO Q6H PRN PRN Reason: Pain, Mild 1-3,fever,headache Al Hydroxide/Mg Hydroxide (Magnesium Hydrox/Alum Hydrox 30 Ml Oral.Susp) 30 ml PO Q4H PRN PRN Reason: Heartburn Atorvastatin Calcium (Atorvastatin Calcium 40 Mg Tablet) 40 mg PO DAILY [facility] Last Admin: 05/10/24 09:38 Dose: 40 mg Calcium Carbonate (Calcium Carbonate 750 Mg Tab.Chew) 750 mg PO Q4H PRN PRN Reason: Heartburn Calcium Carbonate/Cholecalciferol (Calcium + Vitamin D 250 Mg Tablet) 500 mg PO TID [facility] Last Admin: 05/10/24 09:37 Dose: 500 mg Ceftriaxone Sodium (Ceftriaxone Sodium 2 Gm Vial) 2 gm IVPUSH Q12H [facility] Last Admin: 05/09/24 23:11 Dose: 2 gm Enoxaparin Sodium (Enoxaparin Sodium 40 Mg/0.4 Ml Syringe) 40 mg SUBCUT Q24H [facility] Last Admin: 05/09/24 23:11 Dose: 40 mg Gabapentin (Gabapentin 100 Mg Capsule) 200 mg PO TID [facility] Last Admin: 05/10/24 09:37 Dose: 200 mg Hydromorphone HCl (Hydromorphone Hcl 1 Mg/Ml Syringe) 0.5 mg IVPUSH Q4H PRN; Protocol PRN Reason: Pain, Severe (Pain Scale 7-10) Lactated Ringer's (Lr) 1,000 mls @ 100 mls/hr IVCONT .Q10H [facility] Last Admin: 05/10/24 06:59 Dose: 100 mls/hr Lidocaine (Lidocaine 4 % Patch Adh..Patch) 1 patch TRANSDERMA DAILY [facility] Last Admin: 05/10/24 09:43 Dose: 1 patch Magnesium Hydroxide (Milk Of Magnesia 30 Ml Oral.Susp) 30 ml PO DAILY PRN PRN Reason: Constipation Melatonin (Melatonin 3 Mg Tablet) 6 mg PO BEDTIME PRN PRN Reason: Insomnia Omeprazole (Omeprazole 20 Mg Capsule.Dr) 20 mg PO DAILY@0630 [facility] Last Admin: 05/10/24 06:57 Dose: 20 mg Ondansetron HCl (Ondansetron Hcl 4 Mg/2 Ml Vial) 4 mg IVPUSH Q8H PRN PRN Reason: Nausea and Vomiting Oxycodone HCl (Oxycodone Hcl Immed Release 5 Mg Tablet) 10 mg PO Q4H PRN PRN Reason: Pain, Moderate(Pain Scale 4-6) Last Admin: 05/10/24 09:45 Dose: 10 mg Senna (Sennosides 8.6 Mg Tablet) 17.2 mg PO BEDTIME [facility] Last Admin: 05/09/24 20:46 Dose: 17.2 mg Sodium Chloride (0.9 % Sodium Chloride Flush 3 Ml Syringe) 3 ml IVFLUSH QSHIFT [facility] Last Admin: 05/10/24 07:23 Dose: Not Given Tizanidine HCl (Tizanidine Hcl 4 Mg Tablet) 2 mg PO TID [facility] Last Admin: 05/10/24 09:39 Dose: 2 mg Vitamin D (Cholecalciferol (Vitamin D3) 25 Mcg Tablet) 50 mcg PO DAILY [facility] Last Admin: 05/10/24 09:41 Dose: 50 mcg Home Medications ?Medication ?Instructions ?Recorded ?Confirmed ?Last Taken ?Type calcium 600 mg (as 1 tab PO TID 05/18/23 05/08/24 Unknown History carbonate)-vitamin D3 5 mcg (200 unit) tablet rosuvastatin 10 mg tablet 10 mg PO DAILY 05/18/23 05/08/24 Unknown History acetaminophen 325 mg tablet 650 mg PO Q6H PRN Pain (Scale 05/08/24 05/08/24 Unknown History Score 1-3) ammonium lactate 12 % lotion 1 appl topical BID 05/08/24 05/08/24 Unknown History cholecalciferol (vitamin D3) 25 50 mcg PO DAILY 05/08/24 05/08/24 Unknown History mcg (1,000 unit) tablet (Vitamin D3) enoxaparin 40 mg/0.4 mL 40 mg subcut Q24H 05/08/24 05/08/24 Unknown History subcutaneous syringe estradiol 0.01% (0.1 mg/gram) 1 appful vaginal 3XW 05/08/24 Unknown History vaginal cream (Estrace) gabapentin 100 mg capsule 200 mg PO TID 05/08/24 05/08/24 Unknown History lidocaine 5 % topical patch 1 patch topical DAILY 05/08/24 05/08/24 Unknown History oxycodone 5 mg tablet 5 - 10 mg PO Q4H PRN pain 05/08/24 05/08/24 Unknown History pantoprazole 40 mg tablet,delayed 40 mg PO DAILY@0630 05/08/24 05/08/24 Unknown History release sennosides 8.6 mg tablet 17.2 mg PO BEDTIME 05/08/24 05/08/24 Unknown History tizanidine 2 mg tablet 2 mg PO TID 05/08/24 05/08/24 Unknown History Exam Exam Date and Time: 05/10/24 1320 Height,Weight and Vital Signs: Height 5 ft 8 in Weight 87.5 kg Last Vital Signs Temp 97.6 F 05/10/24 10:26 Pulse 59 05/10/24 10:26 Resp 14 05/10/24 10:26 BP 128/52 L 05/10/24 10:26 Pulse Ox 95 05/10/24 10:26 O2 Del Method Room Air 05/10/24 10:26 Pertinent Lab Results Pertinent Lab Results: Laboratory Tests 05/08/24 05/08/24 10:15 11:36 WBC 10.0 RBC 4.14 L Hgb 13.6 Hct 41.3 MCV 99.8 H MCH 32.9 MCHC 32.9 RDW 14.3 Plt Count 224 D MPV 9.3 L Immature Gran % (Auto) 0.3 Neut % (Auto) 88.6 H Lymph % (Auto) 5.2 L [place] % (Auto) 5.1 Eos % (Auto) 0.2 Baso % (Auto) 0.6 Lymph # (Auto) 0.5 L [place] # (Auto) 0.5 Eos # (Auto) 0.0 Baso # (Auto) 0.1 Abs Immat Gran (auto) 0.03 Absolute Neuts (auto) 8.9 H Absolute Nucleated RBC 0.000 Nucleated RBC % (auto) 0.0 Sodium 141 Potassium 4.4 Chloride 107 Carbon Dioxide 27 Anion Gap 11 L BUN 16 Creatinine 1.17 Estim Creat Clear Calc 54.7 Estimated GFR 46 Random Glucose 113 Calcium 9.4 D Total Bilirubin 0.6 Direct Bilirubin 0.2 AST 193 H ALT 179 H Alkaline Phosphatase 288 H Troponin I High Sens < 2.7 Total Protein 7.4 Albumin 4.0 Lipase 24 Urine Color Yellow Urine Appearance Turbid Urine pH 8.0 Ur Specific [place] 1.025 Urine Protein 100 (2+) H Urine Glucose (UA) Negative Urine Ketones Negative Urine Blood Moderate (2+) H Urine Nitrite Positive H Ur Leukocyte Esterase Large (3+) H Urine RBC 11-20 H Urine WBC >50 H Ur Squamous Epith Cells >20 Urine Bacteria 4+ Hyaline Casts 3-5 Influenza Type A (PCR) NEGATIVE Influenza Type B (PCR) NEGATIVE RSV RNA Qual (PCR) NEGATIVE SARS-CoV-2 RNA (RT-PCR) NEGATIVE Airway Mallampati Class: III TM Dist: <=3cm Neck ROM: Full Loose/Missing/Broken Teeth: No (patient denies any loose or broken teeth) Heart: S1S2 Lungs: CTAB Assessment and Plan Assessment Anesthesia Assessment: Anesthesia Plan Discussed and Chart Reviewed Final Anesthetic Review Family History of Problems with Anesthesia: No History of Problems with Anesthesia: No NPO: Yes ASA Class: III Final Preanesthetic Review: No Changes in Pt Med Stat, Meds/Allgs Chart Reviewed, Consent Obtained/Reviewed (phone consent with Derrek Ramos (, HCP)) and Anes Risks/Benef Reviewed Patient Risk: Intermediate Procedure Risk: Intermediate Anesthetic Plan Anesthetic Plan: GA and Agree w/ Assess. and Plan Disposition: Standard PACU
[2024-05-10] MEDS: HYDROmorphone HCl 0.5 MG/0.5 ML SYRINGE IVPUSH ×2 (14:34→14:49)
--- NOTE | 2024-05-10 14:43 | PC.NURSE ---
One time dose of Cefotetan ordered, pt received a scheduled dose of ceftriaxone during surgery. Confirmed in face to face conversation with Dr Rodriguez that Cefotetan dose no longer needed.
--- NOTE | 2024-05-10 14:59 | W.PM.OPN ---
Operative Note Operative Note Date of Service: 05/10/24 Narrative: Preoperative diagnosis: [] Symptomatic gallbladder/acute cholecystitis Postop diagnosis: [] The same Procedure [] laparoscopic cholecystectomy Surgeon: [] Michael Lawn Sprinkler Installer: [] Eusebia Type of Anesthesia: [] General Indication for surgery: [] Edematous inflamed Gallbladder with omental adhesions to it. Moderately intrahepatic gallbladder. Corpulent abdomen Findings: [] Patient brought to the operating room, placed on operative table supine position, after an adequate level of general anesthesia was induced, the patient's abdomen was prepped and draped in usual sterile fashion. Using a supraumbilical curvilinear incision, Brownlee technique was used to insufflate abdominal cavity to 15 mm of CO2. Upper midline and right subcostal ports were placed under direct laparoscopic view, and the patient placed in reverse Trendelenburg position, and tilted to the left. Findings were as noted above. Gallbladder was grasped using laparoscopic graspers and retracted superiorly and laterally. Soft omental adhesions were swept off the gallbladder and the hilum was approached. Cystic artery and cystic duct were each identified, circumferentially skeletonized, traced directly into the gallbladder, and critical view obtained. Each was clipped proximally x2, distally x1, and transected . The gallbladder which was moderately intrahepatic was then cauterized from the gallbladder fossa using Bovie. Specimen placed in an Endo-Catch bag, a retrieved through the umbilical port. Abdominal cavity was copiously irrigated and secured hemostasis. All ports removed under direct laparoscopic view. Wounds were closed in the following manner; umbilical wound is fascia reapproximated using interrupted 0 Vicryl sutures. Skin wounds were closed using subcuticular 4-0 Vicryl sutures followed by Steri-Strips and sterile dressings. Wounds were infiltrated 0.5% Marcaine at completion. Sponge, needle, and instrument counts reported correct. Patient tolerated the procedure well and emerged from anesthesia stable condition. EBL minimal
[2024-05-10] MEDS: Sennosides 8.6 MG TABLET 17.2 MG PO (20:01)
[2024-05-10] MEDS: HYDROmorphone HCl 1 MG/ML SYRINGE 0.5 MG IVPUSH (20:01)
[2024-05-10] MEDS: Enoxaparin Sodium 40 MG/0.4 ML SYRINGE SUBCUT (22:57)
[2024-05-10] MEDS: 0.9 % Sodium Chloride Flush 3 ML SYRINGE IVFLUSH (23:01)
[2024-05-11] MEDS: ondansetron HCL 4 MG/2 ML VIAL IVPUSH (00:45)
[2024-05-11] MEDS: Lactated Ringers 1,000 ML 100 ML IVCONT (01:13)
[2024-05-11 03:58] VITALS: BP 127/60; PULSE 73; RESP 16; TEMP 36.1; O2SAT 94
[2024-05-11] MEDS: Omeprazole 20 MG CAPSULE.DR PO (05:42)
[2024-05-11 08:07] VITALS: BP 113/56; PULSE 66; RESP 18; TEMP 37; O2SAT 96
[2024-05-11] MEDS: Calcium + Vitamin D 250 MG TABLET 500 MG PO ×2 (08:07→13:56)
[2024-05-11] MEDS: Gabapentin 100 MG CAPSULE 200 MG PO ×2 (08:07→13:56)
[2024-05-11] MEDS: Atorvastatin Calcium 40 MG TABLET PO (08:07)
[2024-05-11] MEDS: TiZANidine HCL 4 MG TABLET 2 MG PO ×2 (08:07→13:56)
[2024-05-11] MEDS: Cholecalciferol (Vitamin D3) 25 MCG TABLET 50 MCG PO (08:08)
--- NOTE | 2024-05-11 08:47 | HO.POSTANES ---
Post Anesthesia Evaluation Post Anesthesia Evaluation Date of Service: 05/11/24 Vital Signs: Vital Signs Temp Pulse Resp BP Pulse Ox O2 Del Method 05/11/24 08:07 98.6 F 66 18 113/56 L 96 Room Air 05/11/24 03:58 96.9 F 73 16 127/60 94 Room Air Anesthesia: General Endotracheal-GETA Mental Status: Awake Pain Control: Satisfactory Nausea/Vomiting: None Hydration: Adequate Anesthesia-Related Issues: No Anes. Related Issues
[2024-05-11] MEDS: HYDROmorphone HCl 1 MG/ML SYRINGE 0.5 MG IVPUSH ×2 (09:48→16:36)
--- NOTE | 2024-05-11 10:47 | MHC.CM.PN ---
PT REPORTS SHE LIVES WITH HER AND IS INDEPENDENT AT BASELINE SHE HAS NO HOME SERVICES AND NO DME COPY OF HCP REQUESTED PCP: ARIELLE HOLLOWAY IMM DELIVERED PTS GOAL IS STR, [facility] IS PREFERRED BLS TRANSPORT
[2024-05-11] MEDS: oxyCODONE HCl Immed Release 5 MG TABLET 10 MG PO (12:14)
[2024-05-11] MEDS: cefTRIAXone sodium 2 GM VIAL IVPUSH (12:15)
--- NOTE | 2024-05-11 12:40 | P.PNGS_ITS ---
Subjective Subjective Date of Service: 05/11/24 Interval history: Feels well this morning. Tolerating solid diet. Mild incisional pain. Physical Exam 2 Vital Signs: Vital Signs: Last Vital Signs Temp 98.6 F 05/11/24 08:07 Pulse 66 05/11/24 08:07 Resp 18 05/11/24 08:07 BP 113/56 L 05/11/24 08:07 Pulse Ox 96 05/11/24 08:07 O2 Del Method Room Air 05/11/24 08:07 O2 Flow Rate 2 05/10/24 19:18 BMI result Body Mass Index 29.3 Const: General: comfortable, no acute distress and alert Resp: Effort & Inspection: normal respiratory effort GI: Inspection: No distended and Yes incision (dressings intact) Palpation (GI): Soft to palpation, Tenderness to palpation present (GI) (mild incisional) and no guarding Skin: General skin exam: no rashes or lesions noted and no jaundice Objective Data Active Medications Acetaminophen (Acetaminophen 325 Mg Tablet) 650 mg PO Q6H PRN PRN Reason: Pain, Mild 1-3,fever,headache Al Hydroxide/Mg Hydroxide (Magnesium Hydrox/Alum Hydrox 30 Ml Oral.Susp) 30 ml PO Q4H PRN PRN Reason: Heartburn Atorvastatin Calcium (Atorvastatin Calcium 40 Mg Tablet) 40 mg PO DAILY [facility] Last Admin: 05/11/24 08:07 Dose: 40 mg Documented By: JABIER Calcium Carbonate (Calcium Carbonate 750 Mg Tab.Chew) 750 mg PO Q4H PRN PRN Reason: Heartburn Calcium Carbonate/Cholecalciferol (Calcium + Vitamin D 250 Mg Tablet) 500 mg PO TID [facility] Last Admin: 05/11/24 08:07 Dose: 500 mg Documented By: JABIER Ceftriaxone Sodium (Ceftriaxone Sodium 2 Gm Vial) 2 gm IVPUSH Q12H [facility] Last Admin: 05/11/24 12:15 Dose: 2 gm Documented By: LUDWIG Enoxaparin Sodium (Enoxaparin Sodium 40 Mg/0.4 Ml Syringe) 40 mg SUBCUT Q24H [facility] Last Admin: 05/10/24 22:57 Dose: 40 mg Documented By: DASIA Gabapentin (Gabapentin 100 Mg Capsule) 200 mg PO TID [facility] Last Admin: 05/11/24 08:07 Dose: 200 mg Documented By: JABIER Hydromorphone HCl (Hydromorphone Hcl 1 Mg/Ml Syringe) 0.5 mg IVPUSH Q4H PRN; Protocol PRN Reason: Pain, Severe (Pain Scale 7-10) Last Admin: 05/11/24 09:48 Dose: 0.5 mg Documented By: JABIER Lidocaine (Lidocaine 4 % Patch Adh..Patch) 1 patch TRANSDERMA DAILY [facility] Last Admin: 05/11/24 08:06 Dose: Not Given Documented By: JABIER Non-Admin Reason: Patient Refused Magnesium Hydroxide (Milk Of Magnesia 30 Ml Oral.Susp) 30 ml PO DAILY PRN PRN Reason: Constipation Melatonin (Melatonin 3 Mg Tablet) 6 mg PO BEDTIME PRN PRN Reason: Insomnia Omeprazole (Omeprazole 20 Mg Capsule.Dr) 20 mg PO DAILY@0630 [facility] Last Admin: 05/11/24 05:42 Dose: 20 mg Documented By: DASIA Ondansetron HCl (Ondansetron Hcl 4 Mg/2 Ml Vial) 4 mg IVPUSH Q8H PRN PRN Reason: Nausea and Vomiting Last Admin: 05/11/24 00:45 Dose: 4 mg Documented By: DASIA Oxycodone HCl (Oxycodone Hcl Immed Release 5 Mg Tablet) 10 mg PO Q4H PRN PRN Reason: Pain, Moderate(Pain Scale 4-6) Last Admin: 05/11/24 12:14 Dose: 10 mg Documented By: LUDWIG Senna (Sennosides 8.6 Mg Tablet) 17.2 mg PO BEDTIME [facility] Last Admin: 05/10/24 20:01 Dose: 17.2 mg Documented By: DASIA Sodium Chloride (0.9 % Sodium Chloride Flush 3 Ml Syringe) [address] [facility] Last Admin: 05/11/24 08:06 Dose: Not Given Documented By: JABIER Non-Admin Reason: IV Running Tizanidine HCl (Tizanidine Hcl 4 Mg Tablet) 2 mg PO TID [facility] Last Admin: 05/11/24 08:07 Dose: 2 mg Documented By: JABIER Vitamin D (Cholecalciferol (Vitamin D3) 25 Mcg Tablet) 50 mcg PO DAILY [facility] Last Admin: 05/11/24 08:08 Dose: 50 mcg Documented By: JABIER Labs 05/08/24 10:15 05/08/24 10:15 Microbiology Microbiology Results: Microbiology 05/08/24 18:19 Blood Culture - Preliminary Blood - Venous No growth after 48 hours. 05/08/24 18:19 Blood Culture - Preliminary Blood - Venous No growth after 48 hours. Procedures Date of Service Date of Service: 05/11/24 Progress Note: A&P Assessment and plan (1) Acute cholecystitis: Status: Acute (2) S/P laparoscopic cholecystectomy: Status: Acute Plan POD #1 s/p lap ramy for acute cholecystitis. Doing well post op, pain controlled and tolerating diet. VSS. Abd exam benign with appropriate post op tenderness, dressings intact. Seen by PT who rec STR. Stable for transfer to rehab when bed available. Time Spent With Patient Time: Total time managing care of this patient today ____ minutes. Quality Stroke Does the patient have a stroke diagnosis?: No VTE Prior VTE?: No VTE Risk Level:: Surgical - low VTE Device Contraindication: N/A - Device Ordered VTE Drug Contraindication: Treatment Not Indicated
--- NOTE | 2024-05-11 14:45 | P.DS_ITS ---
DS: Providers Provider Date of Service: 05/11/24 Date of admission: 05/09/24 12:08 Date of discharge: 05/11/24 Primary care physician: Wilmer Evans MD Attending physician on admission: Lexy Ha Attending physician on discharge: Peyman Rodriguez DS: Diagnosis Discharge Diagnosis (1) Acute cholecystitis: Status: Acute (2) S/P laparoscopic cholecystectomy: Status: Acute DS: Summary Hospital Course Hospital Course: HPI AT ADMISSION: Cristine Ramos is a 64 year old female with a history of traumatic brain injury, who is status post recent hip/femur surgery, who was convalescing at an extended care facility who presents here with right upper quadrant abdominal pain. Patient was a poor historian secondary to her cognitive deficit. 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 Workup in ER demonstrated sonogram findings consistent with acute cholecystitis. Patient had a HIDA scan which was initially read as negative but on re- evaluation this morning was read as positive for acute cholecystitis. Chart was reviewed and patient evaluated. Patient was a modest leukocytosis. LFTs demonstrated normal bilirubin and mild elevation of the remaining enzymes. HOSPITAL COURSE: The patient was admitted to the surgical service for further treatment of the acute cholecystitis. Treatment options were discussed and patient and elected to proceed with laparoscopic cholecystectomy, possible open. On 05/10/24, a laparoscopic cholecystectomy was performed by Dr. Rodriguez without complication. The patient tolerated the procedure well. She had an uncomplicated recovery course. On POD #1, she felt well and was tolerating a solid diet without nausea or vomiting, had good pain control. She was hemodynamically stable. Her abdomen was benign with appropriate post op tenderness and clean and intact dressings. She was evaluated by PT who recommended STR upon dc. She was discharged to [facility] on 05/11/24 in stable condition. She is to follow up in the office in 1 week. Time Attestation Discharge Coordination Time (in mins): 35 Quality: Safe Use of Opioids Does Pt have an Active Cancer Diagnosis on the Problem List?: No Quality: Stroke Does the patient have a stroke diagnosis?: No Physical Exam Vital Signs: Vital Signs: Last Vital Signs Temp 98.6 F 05/11/24 08:07 Pulse 66 05/11/24 08:07 Resp 18 05/11/24 08:07 BP 113/56 L 05/11/24 08:07 Pulse Ox 96 05/11/24 08:07 O2 Del Method Room Air 05/11/24 08:07 O2 Flow Rate 2 05/10/24 19:18 BMI result Body Mass Index 29.3 Const: General: comfortable, no acute distress and alert Resp: Effort & Inspection: normal respiratory effort GI: Inspection: No distended and Yes incision (dressings clean) Palpation (GI): Soft to palpation and no guarding Skin: General skin exam: no rashes or lesions noted and no jaundice DS: Data Data Completed and Pending Pending studies at discharge: Pending at discharge 05/10/24 13:51 Surgical [PTH] Routine Labs on day of discharge: Preliminary micro results at discharge 05/08/24 18:19 Blood Culture - Preliminary Blood - Venous No growth after 48 hours. 05/08/24 18:19 Blood Culture - Preliminary Blood - Venous No growth after 48 hours. Discharge Plan Discharge Anticipated Discharge Date/Time: 05/11/24 13:16 Patient Disposition: Xfer [facility] Discharge Diagnosis: s/p laparoscopic cholecystectomy Referrals: Janneth Solorio [Outside] Wilmer Evans MD [Primary Care Provider] - 1 Week Peyman Rodriguez MD [Physician] - 1 Week Discharge Medications: Continued calcium carbonate-vitamin D3 600 mg-5 mcg (200 unit) Tablet 1 tab PO TID rosuvastatin 10 mg tablet 10 mg PO DAILY sennosides 8.6 mg Tablet 17.2 mg PO BEDTIME acetaminophen 325 mg Tablet 650 mg PO Q6H PRN (Reason: Pain (Scale Score 1-3)) tizanidine 2 mg Tablet 2 mg PO TID ammonium lactate 12 % Lotion 1 appl TOPICAL BID pantoprazole 40 mg Tablet,Delayed Release (Dr/Ec) 40 mg PO DAILY@0630 lidocaine 5 % Adhesive Patch,Medicated 1 patch TOPICAL DAILY Rx Instructions: leave on most painful area for up to 12 hrs gabapentin 100 mg Capsule 200 mg PO TID estradiol [Estrace] 0.01 % (0.1 mg/gram) Cream 1 appful VAGINAL 3XW Rx Instructions: for 14 days oxycodone 5 mg tablet 5 - 10 mg PO Q4H PRN (Reason: pain) enoxaparin 40 mg/0.4 mL Syringe 40 mg SUBCUT Q24H Rx Instructions: x 14 days, filled at pharmacy on 04/27/24 cholecalciferol (vitamin D3) [Vitamin D3] 25 mcg (1,000 unit) Tablet 50 mcg PO DAILY Discharge Orders: Discharge Order (Routine); Ordered 05/11/24 Ordered By: Delma Laws Diet: Low fat, low cholesterol Activity on Discharge: No heavy lifting Stand Alone Forms: Patient Portal Discharge page Print Language: Estonian Activity Restrictions/Additional Instructions: Apply an ice pack for short intervals (20 minutes on, followed by at least 20 minutes off) for the first 2 days. Do not apply heat. Do not use creams, lotions, or topical antibiotics. These can cause infection or allergic reaction. Ok to shower 48 hours after your surgery. Remove dressings in 2 days and replace as needed. You have steri strips (small white cloth strips) covering your incision- these will fall off ~1 week. Follow up in office with Dr. Rodriguez in 1 week. ([phone]) No heavy lifting (>10lbs) or strenuous activity! Call Your Doctor If: -Your temperature exceeds 101.5? F -You experience excessive pain or swelling -You have an unexpected reaction to medication -You have excessive bleeding -You experience continued vomiting/nausea -Your incision begins to separate -Your incision shows signs of infection such as increased redness, swelling, excessive pain, drainage (light blood or clear fluid is normal) or heat Care Plan Goals: Return to baseline health and resume normal activities following recovery period. Health Concerns: acute cholecystitis TBI, cognitive impairment Plan of Treatment: dc to STR f/u in office in 1 week Assessment: Doing well post op.
--- NOTE | 2024-05-11 15:07 | MHC.CM.PN ---
Addendum entered by Jennifer Plummer 05/11/24 15:26: DP: PT WILL DC THIS EVENING TO . RN/MD AWARE. BLS TRANSPORT BOOKED FOR 7 PM [facility]. NOTIFIED. Original Note: DP: PT WILL BE DC TO [facility] AT 10 AM ON 05/12 . IS AWARE, CENTER UPDATED ON PLAN. AWARE. BLS TRANSPORT BOOKED FOR 10 AM [facility]
[2024-05-11 15:37] VITALS: BP 124/58; PULSE 59; RESP 20; TEMP 36.9; O2SAT 96
[2024-05-11] MEDS: 0.9 % Sodium Chloride Flush 3 ML SYRINGE IVFLUSH (16:36)
--- NOTE | 2024-05-12 07:13 | PC.NURSE ---
Late note for 05/09/24 @ 0952 - Patient received prn Oxycodone 10mg for 8 left hip pain per patients request. Patient reporting takes oxycodone at home and states it works well to control her pain
== END 2024-05-11 19:00 | disposition skilled nursing facility (03) | DRG 418 ==
LOC: HO.ED 05-09 11:10 → HO.EDOVER 05-09 12:15 → HO.S3 05-10 12:41
PROVIDERS: Emergency Medicine; Admitting Provider Surgery; Emergency Provider Internal Medicine; PCP Internal Medicine; Visit Provider Surgery
PROC: 0FT44ZZ Resection of Gallbladder, Percutaneous Endoscopic Approach (ICD-10-PCS; CPT 47562; principal; 2024-05-10 12:40)
DX: K81.0 Acute cholecystitis (principal); N39.0 Urinary tract infection, site not specified; E78.2 Mixed hyperlipidemia; Z20.822 Contact with and (suspected) exposure to COVID-19; Z79.899 Other long term (current) drug therapy
CPT/HCPCS: 0241U; 36415; 71045; 76705; 78227; 80048; 80076; 81001; 83690; 84484; 85025; 87040; 87086; 87088; 87186; 88304; 93005; 97162; 99285; A9537; J0131; J0696; J1100; J1171; J1650; J2003; J2270; J2405; J2704; J2795; J2805; J3010; J7120

== ENCOUNTER → 2024-05-08 09:19 | Outpatient (BNV) | payer MEDICARE, OTHER, SELFPAY | PROVIDERS: Emergency Provider Emergency Medicine; PCP Internal Medicine; Visit Provider Radiology Diagnostic Radiology | DX: K21.9 Gastro-esophageal reflux disease without esophagitis (principal); K82.8 Other specified diseases of gallbladder; R53.1 Weakness | CPT/HCPCS: 71045 ==

== ENCOUNTER → 2024-05-08 09:20 | Outpatient (BNV) | payer MEDICARE, OTHER, SELFPAY | PROVIDERS: Emergency Provider Internal Medicine; PCP Internal Medicine; Visit Provider Internal Medicine Cardiovascular Disease | DX: R94.31 Abnormal electrocardiogram [ECG] [EKG] (principal) | CPT/HCPCS: 93010 ==

== ENCOUNTER → 2024-05-08 09:21 | Outpatient (BNV) | payer MEDICARE, OTHER, SELFPAY | PROVIDERS: Emergency Provider Internal Medicine; PCP Internal Medicine; Visit Provider Surgery | DX: K81.0 Acute cholecystitis (principal) | CPT/HCPCS: 47562 ==